=== PATIENT | male | born 1935 | race Caucasian/White ===

== ENCOUNTER 2020-12-31 09:27 | Outpatient (CLI) | payer MEDICARE, BC, SELFPAY | END 2020-12-31 09:28 | disposition home or self-care (01) | LOC: ANHCOVIDVC 09:27 | PROVIDERS: PCP Internal Medicine | DX: Z23 Encounter for immunization (principal) | CPT/HCPCS: 0001A; 91300 ==

== ENCOUNTER 2021-01-21 09:26 | Outpatient (CLI) | payer MEDICARE, BC, SELFPAY | END 2021-01-21 09:27 | disposition home or self-care (01) | LOC: ANHCOVIDVC 09:26 | PROVIDERS: PCP Internal Medicine | DX: Z23 Encounter for immunization (principal) | CPT/HCPCS: 0002A; 91300 ==

== ENCOUNTER 2021-05-05 16:23 | Observation (INO) | payer MEDICARE, BC, SELFPAY ==
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
[2021-05-05 16:38] VITALS: BP 144/74; PULSE 65; RESP 16; TEMP 36.2; O2SAT 99
--- NOTE | 2021-05-05 16:43 | ECG_ITS ---
Measurements Intervals [place] Rate: 67 P: -83 [place]: 246 QRS: -50 QRSD: 110 T: 97 QT: 445 QTc: 472 Interpretive Statements SINUS RHYTHM WITH FIRST DEGREE AV BLOCK LEFT ANTERIOR FASCICULAR BLOCK LEFT VENTRICULAR HYPERTROPHY AND ST-T CHANGE ANTEROSEPTAL INFARCT, AGE INDETERMINATE BORDERLINE ST-T WAVE ABNORMALITY- LATERAL LEADS BASELINE ARTIFACT- I, II, III, AVR ABNORMAL ECG Electronically Signed On 05-05-2021 16:59:53 CDT by Lew Clark D.O.
[2021-05-05 17:02] LABS: Basophils Absolute Auto 0.1 K/mm3 (0.0-0.1); Basophils Percent Auto 0.9 % (0.2-1.2); Eosinophils Percent Auto 0.4 % (0-4.4); Hematocrit 41.1 % (42.0-52.0); Hemoglobin 13.5 g/dL (14.0-18.0); Immature Granulocyte Absolute 0.01 K/mm3 (0.00-0.031); Immature Granulocyte Percent A 0.1 % (0-0.5); Lymphocytes Absolute Auto 1.16 K/mm3 (0.9-3.2); Lymphocytes Percent Auto 16.5 % (18.3-44.2); Mean Corpuscular HGB Conc 32.8 g/dl (32-36); Mean Corpuscular Hemoglobin 29.2 pg (26-34); Mean Platelet Volume 9.2 fl (7.4-10.4); Monocytes Absolute Auto 0.4 K/mm3 (0.1-0.6); Monocytes Percent Auto 5.6 % (2.6-8.5); Neutrophils Absolute Auto 5.4 K/mm3 (1.3-6.7); Neutrophils Percent Auto 76.5 % (45.5-73.1); Platelet Count Result 199 k/mm3 (150-375); Red Blood Count 4.62 M/mm3 (4.6-6.20); Red Cell Distribution Width 12.8 % (11.5-14.5)
[2021-05-05 17:13] LABS: Alanine Aminotransferase 19 U/L (4-50); Albumin Level 4.4 g/dL (3.5-5.1); Alkaline Phosphatase 83 U/L (38-126); Anion Gap 8 mmol/L (8-16); Aspartate Amino Transferase 35 U/L (17-59); Bilirubin,Total 0.4 mg/dL (0.2-1.3); Blood Urea Nitrogen 17 mg/dL (9-20); Calcium 9.4 mg/dL (8.4-10.2); Carbon Dioxide 22 mmol/L (22-30); Chloride 107 mmol/L (98-107); Estimated CRCL calculation 43 ml/min; Estimated Glomerular Filt Rate > 60; Glucose 136 mg/dL (75-110); Lipase 42 U/L (23-300); Potassium 3.7 mmol/L (3.4-5.0); Sodium 137 mmol/L (137-145)
--- NOTE | 2021-05-05 18:32 | PC.NURSE ---
Pt unable to give urine sample at this time.
--- NOTE | 2021-05-05 18:57 | PC.NURSE ---
Pt refuses to give urine sample until comes back into room. Will inform EDP of this.
[2021-05-05] MEDS: MECLIZINE HCL 25 MG TABLET PO (19:24)
[2021-05-05] MEDS: TETANUS,DIPHTHERIA,AC PERTUSSIS ADULT (0.5 ML) BOOSTRIX IM (19:25)
[2021-05-05 19:35] VITALS: BP 172/91; PULSE 74; O2SAT 100
--- NOTE | 2021-05-05 19:44 | ED.GENADULT ---
HPI - General Adult General Chief complaint: Dizziness <Linh Khan MD - Last Filed: 05/06/21 13:14> Stated complaint: WEAKNESS,FALL <Linh Khan MD - Last Filed: 05/06/21 13:14> Time Seen by Provider: 05/05/21 18:08 <Linh Khan MD - Last Filed: 05/06/21 13:14> Source: patient <Linh Khan MD - Last Filed: 05/06/21 13:14> History of Present Illness HPI narrative: Patient is a 86 y/o male complaining of moderate dizziness starting about 3:30 PM today. He states that he felt the room was spinning. There was no alleviating or exacerbating. He fell around 4:00 PM due to dizziness. He had some vomiting. He has some skin tear due to his fall. He states that his dizziness is better. He denies any focal weakness or numbness. He has no difficulty with speech. He is not sure when his last Tetanus shot was. <Linh Khan MD - Last Filed: 05/06/21 13:14> Related Data Home medications: Home Medications Medication Instructions Recorded Confirmed aspirin 81 mg tablet,delayed 81 mg PO DAILY 08/25/19 05/06/21 release carvedilol 6.25 mg tablet 6.25 mg PO Q12H 08/25/19 05/06/21 omeprazole 40 mg capsule,delayed 40 mg PO DAILY 08/25/19 05/06/21 release topiramate 100 mg tablet 100 mg PO BID 08/25/19 05/06/21 clopidogrel 75 mg tablet 75 mg PO DAILY 08/31/19 05/06/21 <Linh Khan MD - Last Filed: 05/06/21 13:14> Allergies/adverse reactions: Allergies Allergy/AdvReac Type Severity Reaction Status Date / Time cefuroxime Allergy Unknown Unknown Verified 03/10/21 10:35 phenytoin Allergy Unknown Swelling Verified 03/10/21 10:35 <Linh Khan MD - Last Filed: 05/06/21 13:14> Review of Systems Constitutional: Constitutional: Denies chills, Denies fever(s), Denies headache(s) and Denies weakness <Linh Khan MD - Last Filed: 05/06/21 13:14> Eyes: Eyes: Denies blurry vision <Linh Khan MD - Last Filed: 05/06/21 13:14> ENT: Denies headache(s) and Denies neck pain <Linh Khan MD - Last Filed: 05/06/21 13:14> Cardiovascular: Cardiovascular: Denies chest pain and Denies dyspnea <Linh Khan MD - Last Filed: 05/06/21 13:14> Respiratory: Respiratory: Denies cough and Denies dyspnea <Linh Khan MD - Last Filed: 05/06/21 13:14> Gastrointestinal: Gastrointestinal: Denies abdominal pain, Denies diarrhea, Denies nausea and Denies vomiting <Linh Khan MD - Last Filed: 05/06/21 13:14> Genitourinary: Genitourinary: Denies hematuria and Denies dysuria <Linh Khan MD - Last Filed: 05/06/21 13:14> Musculoskeletal: Musculoskeletal: Denies back pain and Denies neck pain <Linh Khan MD - Last Filed: 05/06/21 13:14> Integumentary/Breasts: Skin/Breast: Reports other (skin tear) <Linh Khan MD - Last Filed: 05/06/21 13:14> Neurologic: Reports dizziness, Denies headache(s) and Denies weakness <Linh Khan MD - Last Filed: 05/06/21 13:14> [facility] Past Medical History Medical History: Medical History ASHD (arteriosclerotic heart disease) BMI 25.0-25.9,adult Colon cancer screening Diarrhea Encounter for routine adult health examination without abnormal findings GERD (gastroesophageal reflux disease) Hyperlipidemia Hypokalemia 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
[2021-05-05] MEDS: METOCLOPRAMIDE HCL INJ 10 MG/2 ML VIAL IV PUSH (20:27)
[2021-05-05 21:25] VITALS: BP 144/64; PULSE 82; RESP 16; O2SAT 100
[2021-05-05 23:13] VITALS: BP 150/84; PULSE 86; RESP 18; O2SAT 99
[2021-05-05] MEDS: ONDANSETRON INJ 4 MG/2 ML VIAL IV PUSH (23:13)
[2021-05-05 23:55] VITALS: BP 158/83; PULSE 83; RESP 18; TEMP 36.2; O2SAT 98
[2021-05-06] VITALS (11 sets, daily range): BP systolic 120–158; BP diastolic 68–82; PULSE 66–96; RESP 16–18; TEMP 36.6–36.7; O2SAT 98–99; BMI 24.7
--- NOTE | 2021-05-06 00:14 | ADMGEN ---
This patient, Kirill Jean, was admitted to [facility] Surg Room 331-02. Patient/family oriented to hospital policies and general routines including ID bracelet, bed and alarms, visiting hours, pain management, procedures, bathroom and other care routines, personal items, smoking policy, room service/diet, and visiting hours. Information on how to activate the Rapid Response Team has been discussed. Patient/Family are encouraged to report perceived risks to care and to ask questions if they do not understand what they are told or what they should do.
[2021-05-06] MEDS: lisinopriL 5 MG TABLET PO (10:14)
[2021-05-06] MEDS: CLOPIDOGREL BISULFATE 75 MG TABLET PO (10:14)
[2021-05-06] MEDS: TOPIRAMATE 100 MG TABLET PO ×2 (10:14→11:53)
[2021-05-06] MEDS: PANTOPRAZOLE 40 MG TABLET PO ×2 (10:14→20:12)
[2021-05-06] MEDS: ASPIRIN 81 MG ENTERIC TABLET PO (10:14)
[2021-05-06] MEDS: carvediloL 6.25 MG TABLET PO ×2 (10:15→20:12)
[2021-05-06] MEDS: ATORVASTATIN 40 MG TABLET 80 MG PO (10:15)
[2021-05-06] MEDS: LORazepam (*CRX) 0.5 MG TABLET PO (12:18)
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
[2021-05-06 17:10] LABS: CRP < 0.5 mg/dL (<1.0); Creatine Kinase 82 U/L (55-170)
[2021-05-06] MEDS: MECLIZINE HCL 25 MG TABLET PO (17:30)
[2021-05-06] MEDS: TOPIRAMATE 100 MG TABLET 200 MG PO (17:30)
[2021-05-06 17:56] LABS: Add Urine Microscopic? YES; Appearance Urine Clear (Clear); Bacteria Urine Trace /hpf; Bilirubin Urine Negative (Negative); Blood Urine Negative (Negative); Color Urine Yellow (Yellow); Glucose Urine UA Negative (Negative); Ketones Urine Negative (Negative); Leukocyte Esterase Ur Negative LEU/UL (Negative); Mucus Urine Rare /lpf; Nitrate Urine Negative (Negative); Protein Urine 1+ mg/dL (Negative); Specific Grav Ur 1.015 (1.001-1.035); Urobilinogen Urine Negative mg/dL (<2.0); WBC Urine 0-3 /hpf
[2021-05-07] VITALS (8 sets, daily range): BP systolic 121–142; BP diastolic 66–77; PULSE 57–68; RESP 16–18; TEMP 36.6–36.7; O2SAT 97–100
[2021-05-07 06:43] LABS: Hematocrit 37.2 % (42.0-52.0); Hemoglobin 12.3 g/dL (14.0-18.0); Mean Corpuscular HGB Conc 33.1 g/dl (32-36); Mean Corpuscular Hemoglobin 29.3 pg (26-34); Mean Corpuscular Volume 88.6 fl (80-100); Mean Platelet Volume 9.7 fl (7.4-10.4); Platelet Count Result 175 k/mm3 (150-375); White Blood Count 8.5 K/mm3 (4.5-10.0)
[2021-05-07 06:59] LABS: Anion Gap 5 mmol/L (8-16); Blood Urea Nitrogen 20 mg/dL (9-20); Carbon Dioxide 23 mmol/L (22-30); Chloride 110 mmol/L (98-107); Estimated CRCL calculation 48 ml/min; Estimated Glomerular Filt Rate > 60; Glucose 106 mg/dL (75-110); Potassium 3.7 mmol/L (3.4-5.0); Sodium 138 mmol/L (137-145)
[2021-05-07] MEDS: CLOPIDOGREL BISULFATE 75 MG TABLET PO (09:27)
[2021-05-07] MEDS: TOPIRAMATE 100 MG TABLET 200 MG PO (09:27)
[2021-05-07] MEDS: MECLIZINE HCL 25 MG TABLET PO ×2 (09:27→13:10)
[2021-05-07] MEDS: lisinopriL 5 MG TABLET PO (09:27)
[2021-05-07] MEDS: ASPIRIN 81 MG ENTERIC TABLET PO (09:27)
[2021-05-07] MEDS: ATORVASTATIN 40 MG TABLET 80 MG PO (09:27)
[2021-05-07] MEDS: carvediloL 6.25 MG TABLET PO (09:27)
[2021-05-07] MEDS: PANTOPRAZOLE 40 MG TABLET PO (09:27)
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
--- NOTE | 2021-05-07 13:03 | PM.DS ---
DS: Admitting Diagnosis Admitting Diagnosis Admitting Diagnosis: dizziness DS: Discharge Diagnosis Discharge Diagnosis (1) Dizziness: Code(s): R42 - Dizziness and giddiness Status: Acute Assessment and Plan: Pt dizziness has resolved. Suspect BPPV. outpt PT for vestibular therapy was given. Day of d/c pt was walking without issue with no further symptoms. -CTA of the brain does not show any acute pathology or stenosis -unable to obtain MRI of the brain due to severe claustrophobia -neurological exam shows horizontal and vertical nystagmus on admission, no neurological deficits -improved on scheduled meclizine, he was given an Rx for that. - differential diagnosis include: benign paroxysmal vertigo, CVA, cerebellar pathology. Less likely thiamine/heavy metal abnormalities -sz seems less likely, continue Topamax. Level appropriate. -Neuro recommends outpt CT of brain in [address] I spoke with Dr[address] Elias who agrees to follow. (2) Nystagmus: Code(s): H55.00 - Unspecified nystagmus Status: Acute Assessment and Plan: resolved. as above (3) Seizure disorder: Code(s): G40.909 - Epilepsy, unspecified, not intractable, without status epilepticus Status: Acute Assessment and Plan: he has not had a breakthrough seizure since 1997 - continue Topamax (4) History of brain surgery: Code(s): Z98.890 - Other specified postprocedural states Status: Acute Assessment and Plan: he had a removal of a meningioma in 1997 and a subsequent brain bleed after his procedure - he has not had any issues since (5) Coronary artery disease: Code(s): I25.10 - Atherosclerotic heart disease of [place] coronary artery without angina pectoris Status: Acute Assessment and Plan: he had a OK in 2014 with 2 stents and continues to be on aspirin Plavix - he is usually very active - continue statin therapy DS: Summary Hospital Course Hospital Course: Pt is an 86-year-old male with a past medical history of coronary artery disease, meningioma with removal in 1997, hand seizure disorder with his last seizure in 1997 who presented emergency room for dizziness. Patient states he was in his usual state of health this weekend and had no complaints. He is an active 86-year-old and goes to the exam 5 days a week and also does workouts in his basement. Pt was out shopping for a car when he started to feel lightheaded. He was driving at the time and pulled over. He said he just sat there for a while because he thought he may have a seizure but nothing happened. He did not have any dizziness at this time so he continue driving. When he got to his destination, he noticed he was having some blurred vision as well as diaphoresis and lightheadedness. He sat down and drank a couple of glasses of water and felt better. he then drove home him when he got home he felt very dizzy. He felt like the world was spinning around him and it caused him to be very nauseated. He had no diarrhea or abdominal pain with this but did vomit due to the dizziness. since he felt dizzy, he was walking back to his bedroom and lost his balance and fell backwards on to his forearms. He did not hit his head and did not have any loss of consciousness. He sat on the floor for a few minutes with his and then was able to get up. He had no chest pain, loss of vision, or involuntary movements during this time. He did not notice any back pain, numbness or tingling to his lower extremities, or incontinence. he says that he drinks lots of water and does not feel dehydrated. He denies shortness of breath, cough, rashes, wounds, blood in his stool or dysuria. He has had absolutely no chest pain. He does have ringing in his ears but this has been chronic since his brain surgery in 1997. He was vaccinated for COVID in December with an RNA vaccine. He states he has not had a seizure since his brain surgery [email or web address]
[2021-05-10 01:13] LABS: Topiramate 8.6 mcg/mL (***)
== END 2021-05-07 15:25 | disposition home or self-care (01) ==
LOC: ANHED 22:51 → ANH3MEDSUR 23:29
PROVIDERS: Emergency Medicine; Physician Assistant; Admitting Provider Internal Medicine; Emergency Provider General Practice; PCP Internal Medicine; Visit Provider Internal Medicine
DX: R42 Dizziness and giddiness (principal); H55.00 Unspecified nystagmus; G40.909 Epilepsy, unspecified, not intractable, without status epilepticus; I25.10 Atherosclerotic heart disease of native coronary artery without angina pectoris; K21.9 Gastro-esophageal reflux disease without esophagitis; K40.91 Unilateral inguinal hernia, without obstruction or gangrene, recurrent; E78.5 Hyperlipidemia, unspecified; R73.03 Prediabetes; I25.2 Old myocardial infarction; Z95.5 Presence of coronary angioplasty implant and graft; Z79.899 Other long term (current) drug therapy; Z98.890 Other specified postprocedural states
CPT/HCPCS: 36415; 70496; 70498; 72131; 80048; 80053; 80201; 81001; 82550; 83690; 84443; 85025; 85027; 86140; 90471; 90715; 93005; 96374; 96375; 97116; 97161; 97165; 97535; 99285; A9270; G0378; J2405; J2765; Q9967

== ENCOUNTER 2022-09-17 11:21 | Inpatient (IN) | payer MEDICARE, BC, SELFPAY ==
[2022-09-17] VITALS (8 sets, daily range): BP systolic 156–178; BP diastolic 81–97; PULSE 61–98; RESP 14–19; TEMP 36.4–36.7; O2SAT 98–99; BMI 20.5
--- NOTE | ~2022-09-17 | CT_ITS ---
EXAMINATION: CTA BRAIN/CAROTID DATE: 09/17/2022 12:55 INDICATION: Aphasia TECHNIQUE: Computed tomographic angiography (CTA) of the head and neck was performed with 100 mL Omni paque-350 intravenous contrast. Multiplanar reconstructions and maximum intensity projection 3D-recon structions of the carotid arteries and of the intracranial arteries were created by the technologist on a separate workstation. Automated exposure control and iterative reconstruction technique were emp loyed.The dose-length product was 975.28 mGy-cm. COMPARISON: None. FINDINGS: Carotid arteries: Atherosclerotic calcification is along the normal caliber visualized portion of the aortic arch. Ther e is a small shallow penetrating atherosclerotic ulcer measuring approximately 1.4 x 1.3 cm in area a nd up to 4 mm in depth located approximately 1 cm distal to the takeoff of the left subclavian artery . There is small amount of atherosclerotic plaque with 0% stenosis of both the right and left carotid bulbs relative to normal distal artery lumen diameter (NASCET criteria). Visualized bilateral upper lung zones are clear. Cervical spondylosis with multilevel mild to moderate disc height loss and ante rior fusion at C5-C6. Severe multilevel bilateral cervical facet osteoarthritis. Intracranial arteries The left vertebral artery is dominant. There is mild stenosis along the intracranial right vertebral artery. Moderate stenosis along the basilar artery. Atherosclerotic plaque without hemodynamically si gnificant stenosis along the bilateral carotid siphons. There are no aneurysms identified. Both A1 a nd P1 segments are patent. The left P1 segment is diminutive with majority of flow to the left verteb ral artery is supplied by a larger caliber patent left posterior communicating artery. Cerebral arter ial arborization appears symmetric. No abnormally enhancing brain lesions identified. Again seen is a region of encephalomalacia in the left frontal lobe which could represent sequela of prior infarct o r surgery. Overlying chronic left frontal craniotomy and small chronic likely postoperative simple fl uid attenuation epidural hygroma which remain stable since 05/05/2021. IMPRESSION: 1. Atherosclerotic plaque with 0% stenosis of the right and left carotid bulbs relative to normal dis fransico artery lumen diameter (NASCET criteria). 2. Moderate stenosis along the mid basilar artery and mild stenosis along the smaller caliber intracr anial right vertebral artery. No aneurysm, dissection or abnormally enhancing brain lesion. 3. Small shallow penetrating atherosclerotic ulcer along the distal aortic arch. Consider nonemergent vascular surgery consultation. 4. Encephalomalacia in the left frontal lobe which could represent sequela prior infarct or surgery w ith stable appearance of overlying chronic postoperative changes. Reviewed, dictated and finalized at location A. STANT OFFSET PRESS OPERATOR IMPRESSION: 1. Atherosclerotic plaque with 0% stenosis of the right and left carotid bulbs relative to normal distal artery lumen diameter (NASCET criteria). 2. Moderate stenosis along the mid basilar artery and mild stenosis along the s maller caliber intracranial right vertebral artery. No aneurysm, dissection or abnormally enhancing brain lesion. 3. Small shallow penetrating atherosclerotic ulcer along the distal aortic arch . Consider nonemergent vascular surgery consultation. 4. Encephalomalacia in the left frontal lobe which could represent sequela prio r infarct or surgery with stable appearance of overlying chronic postoperative changes.
--- NOTE | ~2022-09-17 | CT_ITS ---
EXAMINATION: CT brain wo con DATE: 09/17/2022 11:50 INDICATION: Achalasia. Unresponsive episode. History of brain tumor 20 years ago. TECHNIQUE: Computed tomography (CT) of the head was performed without intravenous contrast. The mA wa s adjusted according to patient size. Iterative reconstruction technique was employed. Exam dose: 60 5.33 mGy-cm total exam DLP. COMPARISON: 05/05/2021 CTA brain/carotid FINDINGS: Left frontal bone flap secured by plates and screws, with underlying prominent area of left frontal encephalomalacia; history of previous brain tumor. The appearance is stable since 05/05/2021. Vertebral and carotid siphon and supraclinoid internal carotid artery calcifications. There is nonspe cific diminished attenuation of the cerebral white matter, likely due to chronic small vessel ischemi c changes. No intracranial mass lesion or hemorrhage, midline shift or mass effect effect is detected. No acute subdural or epidural hematoma. Moderate cerebral and cerebellar volume loss. The orbital contents are unremarkable. No fracture or bone destruction of the cranial vault is noted. There is some mastoid effusions on the left. The right mastoid air cells and included paranasal sinus es are unremarkable. IMPRESSION: Chronic left frontal encephalomalacia likely related to prior excised brain neoplasm, wi th overlying left craniectomy No acute intracranial finding or significant change since 05/05/2021 Cerebral atherosclerosis and chronic small vessel ischemic changes of the cerebral white matter Reviewed, dictated and finalized at [facility]. Reviewed, dictated and finalized at location A. ODS SPECIALIST IMPRESSION: Chronic left frontal encephalomalacia likely related to prior exci sed brain neoplasm, with overlying left craniectomy No acute intracranial finding or significant change since 05/05/2021 Cerebral atherosclerosis and chronic small vessel ischemic changes of the cereb ral white matter
--- NOTE | ~2022-09-17 | MR_ITS ---
EXAMINATION: MR brain/brain stem wo con DATE: 09/18/2022 13:41 INDICATION: Aphasia. Concern for stroke. TECHNIQUE: Magnetic resonance imaging (MRI) of the brain and brainstem was performed without intraven ous contrast. Sequences included sagittal and axial T1-weighted SE, axial diffusion-weighted FS SE, a xial T2*-weighted GRE, axial 3D SWAN, axial T2-weighted FLAIR, and axial T2-weighted FSE. Apparent di ffusion coefficient (ADC) maps were created. COMPARISON: Head CT and CT angiogram dated 09/17/2022 FINDINGS: There is a small region of restricted diffusion with associated increased T2 signal along a gyrus at the posterior left frontal lobe consistent with acute infarct. No other regions of restricted diffusi on identified. There is increased T2 white matter likely related to gliosis surrounding a moderate-si zed region of encephalomalacia in the left frontal lobe reportedly related to resection of a prior me ningioma. There are some magnetic susceptibility artifact along the overlying skull corresponding to a prior craniotomy. No intracranial hemorrhage or abnormal intracranial mass lesion. There is a small amount of additional scattered nonspecific increased T2-weighted signal intensity in the cerebral wh ite matter, predominantly involving the deep and periventricular white matter. There are no intrapare nchymal signal abnormalities seen on the other pulse sequences. The ventricles are symmetric and norm al in size. There are no abnormal extra-axial fluid collections. Flow voids are seen in the cerebral arteries on the T2-weighted sequences consistent with their expected patency. Left mastoid effusion. Changes of bilateral intraocular lens replacement. IMPRESSION: 1. Small acute infarct involving a gyrus at the posterior left frontal lobe. 2. Postoperative changes in the left frontal lobe with moderate-sized region of encephalomalacia repo rtedly for resection of a prior meningioma. 3. Left mastoid effusion. Reviewed, dictated and finalized at location A. R OPERATOR IMPRESSION: 1. Small acute infarct involving a gyrus at the posterior left frontal lobe. 2. Postoperative changes in the left frontal lobe with moderate-sized region of encephalomalacia reportedly for resection of a prior meningioma. 3. Left mastoid effusion.
--- NOTE | ~2022-09-17 | XR_ITS ---
XR chest 1V DATE: 09/17/2022 11:51 INDICATION: Achalasia TECHNIQUE: AP chest COMPARISON: 02/06/2015 portable AP chest at 0655 hours FINDINGS: Cardiomegaly and aortic calcification, ectasia and mild tortuosity. No hilar or mediastinal enlargement is evident. No pulmonary infiltrate or consolidation, pleural effusion or pulmonary vascular congestion or pneumo thorax. Osteopenia. Osteoarthritic change at both glenohumeral joints. Dextroscoliosis of the thoracic spine and levoscoliosis of the lumbar spine and thoracic and lumbar degenerative changes. IMPRESSION: Cardiomegaly, aortic atherosclerosis No active pulmonary disease Reviewed, dictated and finalized at location [facility]
--- NOTE | 2022-09-17 11:36 | ECG_ITS ---
Measurements Intervals [place] Rate: 58 P: 79 ID: [id number] QRS: -58 QRSD: 138 T: 126 QT: 456 QTc: 451 Interpretive Statements SINUS BRADYCARDIA WITH FIRST DEGREE AV BLOCK INTRAVENTRICULAR CONDUCTION DELAY LEFT VENTRICULAR HYPERTROPHY AND ST-T CHANGE ANTEROSEPTAL INFARCT, AGE INDETERMINATE BORDERLINE ST-T WAVE ABNORMALITY- ANTEROLATERAL LEADS ABNORMAL ECG COMPARED TO ECG 05/05/2021 16:55:13 SINUS BRADYCARDIA NOW PRESENT INTRAVENTRICULAR CONDUCTION DELAY NOW PRESENT Electronically Signed On 09-17-2022 14:35:20 INSTRUMENT PROCESSING TECH by Lew Clark D.O.
[2022-09-17 11:38] LABS: Glucose Point of Care 100 mg/dl (65-105)
--- NOTE | 2022-09-17 11:43 | ED.NEUROSD ---
HPI - Neuro Symptoms/Deficit General Chief Complaint: Neuro Symptoms/Deficit Stated Complaint: stroke like symptoms lkw 2100 last night Time Seen by Provider: 09/17/22 11:36 History of Present Illness HPI Narrative: This is an 87-year-old male with past medical history of intracranial malignancy status postresection, hypertension and coronary artery disease, who presents to the emergency department with aphasia. Patient's son, who is at bedside notes yesterday evening at around 9 pm, the patient had a brief episode of word finding difficulty. At approximately 1030 this morning, patient appeared to be at his baseline. When he was reevaluated approximately 30 minutes later, patient appeared to be drooling and had word finding difficulty. Patient's son notes that he was walking at the time and did not appear weak. EMS reports the patient had only aphasia without any focal weakness. Fingerstick glucose was reported in the 110s. Vital signs were otherwise reported as normal. Related Data Home Medications Medication Instructions Recorded Confirmed aspirin 81 mg tablet,delayed 81 mg PO DAILY 08/25/19 09/17/22 release (Adult Low Dose Aspirin) clopidogrel 75 mg tablet 75 mg PO DAILY 08/31/19 09/17/22 cholecalciferol (vitamin D3) 25 25 mcg PO DAILY 09/11/21 09/17/22 mcg (1,000 unit) tablet carvedilol 3.125 mg tablet 3.125 mg PO BID 01/08/22 09/17/22 atorvastatin 80 mg tablet 40 mg PO DAILY 09/17/22 09/17/22 Allergies Allergy/AdvReac Type Severity Reaction Status Date / Time cefuroxime Allergy Unknown Unknown Verified 01/08/22 11:17 phenytoin Allergy Unknown Swelling Verified 01/08/22 11:17 Review of Systems Review of Systems: Review of systems limited due to aphasia NEUROLOGIC: Aphasia [facility] Past Medical History Medical History (Updated 09/17/22 @ 16:01 by Cindy Metz PA-C) Anterior wall myocardial infarction (02/06/15) Benign meningioma of brain (1997) Coronary artery disease (2014) Gastroesophageal reflux disease Gout Hyperlipidemia Ischemic cardiomyopathy Echo in January 2015 following [place] showed and EF of 30-40% with akinetic apex as well as the distal anterior wall. Pre-diabetes Seizure disorder Vitamin D deficiency Surgical History Surgical History (Updated 09/17/22 @ 16:01 by Cindy Metz PA-C) History of bilateral carpal tunnel release History of bilateral inguinal hernia repair Laparoscopic repair with mesh of bilateral inguinal hernias on 10/30/2005. Laparoscopic incarcerated recurrent left inguinal hernia repair with ProGripmesh, da Dayron assisted on 08/08/2015. History of cardiac catheterization (02/06/15) History of coronary angioplasty with insertion of stent (02/06/15) PCI/stent to LAD/septal perforating and large diagonal per Dr. August. History of craniotomy (1997) Resection of a benign left-sided meningioma. History of tonsillectomy Family History Family History Mother Cerebrovascular accident Father Family history of osteoporosis Family history of respiratory disorder Social History Social History (Updated 09/17/22 @ 14:41 by Cindy Metz PA-C) Social History: Patient does not drink alcohol, does not smoke, and does not do drugs. 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 He would like to be a full code. He designates his , Osiris, as his surrogate decision maker if needed. Smoking status: Never smoker Alcohol intake: never Substance use: never Substance use type: does not use Lack of Transportation: No Lack of Food: Never True Current Housing: I Do Not Have Housing Concerned About Future Housing: Decline to Answer Difficulty Paying Gas/Electric Bills: Decline to Answer Difficulty Paying for Meds: Decline to Answer Currently Unemployed: Decline to Answer Education: Don't Know Difficulty w/ Childcare or Family Care: Decline to Answer Spiritual care concerns: No
[2022-09-17 11:54] LABS: Basophils Absolute Auto 0.1 K/mm3 (0.0-0.1); Eosinophils Absolute Auto 0.3 K/mm3 (0-0.3); Hematocrit 38.8 % (42.0-52.0); Hemoglobin 13.2 g/dL (14.0-18.0); Immature Granulocyte Absolute 0.01 K/mm3 (0.00-0.031); Immature Granulocyte Percent A 0.2 % (0-0.5); Lymphocytes Absolute Auto 2.26 K/mm3 (0.9-3.2); Lymphocytes Percent Auto 36.1 % (18.3-44.2); Mean Corpuscular Hemoglobin 30.1 pg (26-34); Mean Corpuscular Volume 88.6 fl (80-100); Mean Platelet Volume 9.2 fl (7.4-10.4); Monocytes Absolute Auto 0.5 K/mm3 (0.1-0.6); Monocytes Percent Auto 8.3 % (2.6-8.5); Neutrophils Absolute Auto 3.1 K/mm3 (1.3-6.7); Neutrophils Percent Auto 49.4 % (45.5-73.1); Platelet Count Result 208 k/mm3 (150-375); Red Blood Count 4.38 M/mm3 (4.6-6.20); Red Cell Distribution Width 12.6 % (11.5-14.5); White Blood Count 6.3 K/mm3 (4.5-10.0)
[2022-09-17 12:04] LABS: Ethanol < 10 mg/dL (<10)
[2022-09-17 12:05] LABS: INR 1.2; Prothrombin Time 14.3 Seconds (11.1-14.7)
[2022-09-17 12:06] LABS: Partial Thromboplastin Time 29.8 SECONDS (22.3-36.8)
[2022-09-17 12:07] LABS: Alanine Aminotransferase 24 U/L (6-50); Albumin Level 4.2 g/dL (3.5-5.1); Alkaline Phosphatase 72 U/L (38-126); Anion Gap 11 mmol/L (8-16); Aspartate Amino Transferase 32 U/L (17-59); Bilirubin,Total 0.5 mg/dL (0.2-1.3); Blood Urea Nitrogen 16 mg/dL (9-20); Calcium 9.1 mg/dL (8.4-10.2); Carbon Dioxide 22 mmol/L (22-30); Chloride 105 mmol/L (98-107); Estimated CRCL calculation 41 ml/min; Estimated Glomerular Filt Rate > 60; Glucose 93 mg/dL (65-110); Potassium 4.3 mmol/L (3.4-5.0); Sodium 138 mmol/L (137-145)
[2022-09-17 12:14] LABS: Appearance Urine Clear (Clear); Bilirubin Urine Negative (Negative); Blood Urine 1+ (Negative); Color Urine Yellow (Yellow); Glucose Urine UA Negative (Negative); Ketones Urine Negative (Negative); Leukocyte Esterase Ur Negative LEU/UL (Negative); Nitrate Urine Negative (Negative); Protein Urine Negative (Negative); Specific Grav Ur 1.015 (1.001-1.035); Urobilinogen Urine 0.2 mg/dL (<2.0); pH Urine 7.5 (5.0-9.0)
[2022-09-17 12:18] LABS: Mucus Urine Rare /lpf; WBC Urine 0-3 /hpf
[2022-09-17 12:19] LABS: Add Urine Microscopic? YES
[2022-09-17 12:19] LABS: Troponin I 0.012 ng/mL (0.000-0.034)
[2022-09-17 12:30] LABS: Amphetamine Screen Urine Negative (Negative); Barbiturate Screen Urine Negative (Negative); Benzodiazepines Screen Urine Negative (Negative); Cannabinoid Screen Urine Negative (Negative); Cocaine Screen Urine Negative (Negative); Methadone Screen Urine Negative (Negative); Opiate Screen Urine Negative (Negative); Phencyclidine Screen Urine Negative (Negative)
[2022-09-17 14:50] LABS: Influenza A QL RT-PCR Negative (Negative); Influenza B QL RT-PCR Negative (Negative); SARS-CoV-2 RNA PCR Negative
--- NOTE | 2022-09-17 16:21 | ADMGEN ---
This patient, Kirill Jean, was admitted to Medical Room 347-. Patient/family oriented to hospital policies and general routines including ID bracelet, bed and alarms, visiting hours, pain management, procedures, bathroom and other care routines, personal items, smoking policy, room service/diet, and visiting hours. Information on how to activate the Rapid Response Team has been discussed. Patient/Family are encouraged to report perceived risks to care and to ask questions if they do not understand what they are told or what they should do.
--- NOTE | 2022-09-17 16:30 | PM.IMHP ---
H&P: HPI History of Present Illness Date/Time: 09/17/22 16:30 Chief Complaint: Difficulty speaking. Narrative: This is an 87-year-old male with history of benign meningioma status post resection, seizure, hypertension and coronary artery disease who presented to the emergency department via EMS from home for evaluation of difficulty speaking. Obtaining a history from the patient is a bit difficult as he has pretty significant expressive aphasia however he is able to write okay and is fully able to understand what I am asking him. Some of the following is supplemented via a review of his electronic medical records as well as discussions with his sons, with the patient's permission. At around 21:00 last evening he reportedly had a brief episode of word-finding difficulties which passed quickly. When he got up this morning he was at baseline and his son came over to pick him up for Thanksgiving lunch. They chatted for bit while he got ready and the son left him alone to finish getting dressed. Perhaps 10 to 15 minutes later, son went back in to the room to tell the patient was time to go and ?he looks like a deer in headlights? and he was unable to respond to his son's questions. He ambulated without issue to the bathroom and son followed him in there at which time the patient was stuttering and only able to say numbers. Son also reports that he seems to be grunting and was drooling for brief period of time. EMS was summoned and fingerstick glucose at that time was 110. They did not notice any gross focal deficits and the patient seemed to be only suffering from aphasia. Brain CT showed chronic left frontal encephalomalacia likely related to excision of prior brain neoplasm and cerebral atherosclerosis and chronic small-vessel ischemic changes of cerebral white matter without any significant change when compared to a prior scan in April 2021. Dr. Mercado (neurology) was consulted by the ED physician and she did not give recommendations for tPA. Instead a CTA of the head and neck was recommended, no large vessel occlusions were noted, and he is being admitted in this setting for close monitoring, further workup, and neurology consult. At the time my evaluation he is alert and oriented. He was able to easily get himself from the gurney to his bed and does not appear to have any physical limitations. He seems to comprehend what I am saying to him and can write without issue. He was noted to clear his throat several times during the interview but son at bedside states that this is been an ongoing issue however it may be a little bit worse today. The patient was able to drink water need ice chips in the room without any obvious issues. Aside from the speech he has no other deficits and he specifically denies vertigo, auditory and visual changes, focal weakness, paresthesias, facial droop. He has no known history of cardiac dysrhythmia and denies sensations of racing heart and palpitations. He is on dual anti-platelet therapy for history of coronary artery disease and is on a statin daily; he took all of his medications this morning. Review of Systems Review of Systems: Twelve systems were reviewed and are negative except for as per HPI. [facility] Past Medical History Medical History (Updated 09/17/22 @ 20:55 by Cindy Metz PA-C) Anterior wall myocardial infarction (02/06/15) Benign meningioma of brain (1997) Coronary artery disease (2014) Essential hypertension Gastroesophageal reflux disease Gout Hyperlipidemia Ischemic cardiomyopathy Echo in January 2015 following [place] showed and EF of 30-40% with akinetic apex as well as the distal anterior wall. Pre-diabetes Seizure disorder Vitamin D deficiency Surgical History Surgical History History of bilateral carpal tunnel release History of bilateral inguinal hernia repair Laparoscopic repair with mesh of bilateral inguinal hernias on 10/30/2005. Laparoscopic i
[2022-09-18] VITALS (11 sets, daily range): BP systolic 132–145; BP diastolic 57–75; PULSE 60–80; RESP 16–20; TEMP 36.2–36.8; O2SAT 98–100
--- NOTE | 2022-09-18 04:42 | PC.NURSE ---
09/17/221999: PT EXPERIENCED EPISODE OF EPISTAXIS FROM RT NARE; ABLE TO CONTROL/STOP BLEED W/ NASAL BRIDGE PRESSURE AND NASAL PACKING. DR. VARGAS MADE AWARE. NNO. BP WNL.
[2022-09-18 05:23] LABS: Basophils Absolute Auto 0.1 K/mm3 (0.0-0.1); Basophils Percent Auto 0.9 % (0.2-1.2); Eosinophils Absolute Auto 0.1 K/mm3 (0-0.3); Eosinophils Percent Auto 1.7 % (0-4.4); Hematocrit 37.1 % (42.0-52.0); Hemoglobin 12.5 g/dL (14.0-18.0); Immature Granulocyte Absolute 0.01 K/mm3 (0.00-0.031); Immature Granulocyte Percent A 0.2 % (0-0.5); Lymphocytes Absolute Auto 1.83 K/mm3 (0.9-3.2); Lymphocytes Percent Auto 28.7 % (18.3-44.2); Mean Corpuscular HGB Conc 33.7 g/dl (32-36); Mean Corpuscular Hemoglobin 29.5 pg (26-34); Mean Corpuscular Volume 87.5 fl (80-100); Monocytes Absolute Auto 0.5 K/mm3 (0.1-0.6); Monocytes Percent Auto 7.8 % (2.6-8.5); Neutrophils Absolute Auto 3.9 K/mm3 (1.3-6.7); Neutrophils Percent Auto 60.7 % (45.5-73.1); Platelet Count Result 174 k/mm3 (150-375); Red Blood Count 4.24 M/mm3 (4.6-6.20); Red Cell Distribution Width 12.7 % (11.5-14.5); White Blood Count 6.4 K/mm3 (4.5-10.0)
[2022-09-18 05:34] LABS: Anion Gap 8 mmol/L (8-16); Blood Urea Nitrogen 15 mg/dL (9-20); Calcium 8.8 mg/dL (8.4-10.2); Carbon Dioxide 23 mmol/L (22-30); Chloride 107 mmol/L (98-107); Estimated CRCL calculation 41 ml/min; Estimated Glomerular Filt Rate > 60; Glucose 100 mg/dL (65-110); Potassium 4.1 mmol/L (3.4-5.0); Sodium 138 mmol/L (137-145)
[2022-09-18] MEDS: lisinopriL 5 MG TABLET PO (08:31)
[2022-09-18] MEDS: carvediloL 3.125 MG TABLET PO (08:32)
[2022-09-18] MEDS: CHOLECALCIFEROL 1,000 UNITS TABLET 1000 UNITS PO (08:32)
[2022-09-18] MEDS: MULTIVITAMINS THERAPEUTIC TAB (*BKC) 1 TABLET PO (08:32)
[2022-09-18] MEDS: EZETIMIBE 10 MG TABLET PO (08:32)
[2022-09-18] MEDS: ATORVASTATIN 40 MG TABLET PO (08:32)
[2022-09-18] MEDS: ASPIRIN 81 MG ENTERIC TABLET PO (08:32)
[2022-09-18] MEDS: CLOPIDOGREL BISULFATE 75 MG TABLET PO (08:32)
--- NOTE | 2022-09-18 08:46 | WPDNEURCNPN ---
Assessment and Plan Assessment and plan (1) Aphasia: Code(s): R47.01 - Aphasia Status: Acute (2) Cerebrovascular accident: Code(s): I63.9 - Cerebral infarction, unspecified Status: Acute (3) Coronary artery disease: Onset Date: 2014 Code(s): I25.10 - Atherosclerotic heart disease of [place] coronary artery without angina pectoris Status: Acute (4) Essential hypertension: Code(s): I10 - Essential (primary) hypertension Status: Acute Plan Patient is an 87 year old male with a history of CAD, HTN, HLD, pre-diabetes who presents with aphasia, concerning for stroke. Etiology is unclear, likely large vessel disease given CTA findings of atherosclerosis, but could also be cardioembolic given underlying coronary artery disease. - Recommend stroke work-up with MRI brain and surface echo with bubble study - Check LDL and HgbA1c - Continue ASA, Plavix, and Atorvastatin Consult date: 09/18/22 Time Seen: 08:46 Reason for consult: aphasia HPI: Kirill Jean is a 87 year old male with a history of HTN, CAD, pre-diabetes, meningioma s/p resection presenting with aphasia. Patient's last known well was 2100 on 09/16 which around the time he had a short transient episode of word finding difficulty that self-resolved. Patient woke up the next day at baseline, but by the time son came to pick him up, patient was displaying word finding difficulties again -- he was unable to answer son's questions and stuttering. EMS was called, fingerstick glucose was 110s. He was taken to [place] ED where he only had aphasia without any other focal deficits. EKG showed sinus bradycardia with 1st degree AV block. His BP on arrival was in 160s-170s systolic. CT showed L frontal encephalomalacia from prior tumor resection. CTA showed atherosclerotic plaque in bilateral carotid bulbs without stenosis and moderate stenosis along the mid basilar artery and mild stenosis along the intracranial right vertebral artery. Also noted was an atherosclerotic ulcer on the distal aortic arch. Patient did not receive tPA due to his LKW being outside the window. Patient is already on ASA 81mg, Plavix 75mg ( DAPT for CAD), Atorvastatin 80mg, as well as Ezetimibe. He reported good compliance with these medications. Patient is still aphasic this morning. Review of Systems Review of Systems: Patient aphasic, unable to answer questions ROS unobtainable: Yes unobtainable due to medical condition [facility] Past Medical History Medical History Anterior wall myocardial infarction (02/06/15) Benign meningioma of brain (1997) Coronary artery disease (2014) Essential hypertension Gastroesophageal reflux disease Gout Hyperlipidemia Ischemic cardiomyopathy Echo in January 2015 following [place] showed and EF of 30-40% with akinetic apex as well as the distal anterior wall. Pre-diabetes Seizure disorder Vitamin D deficiency Surgical History Surgical History History of bilateral carpal tunnel release History of bilateral inguinal hernia repair Laparoscopic repair with mesh of bilateral inguinal hernias on 10/30/2005. Laparoscopic incarcerated recurrent left inguinal hernia repair with ProGripmesh, da Dayron assisted on 08/08/2015. History of cardiac catheterization (02/06/15) History of coronary angioplasty with insertion of stent (02/06/15) PCI/stent to LAD/septal perforating and large diagonal per Dr. August. History of craniotomy (1997) Resection of a benign left-sided meningioma. History of tonsillectomy Family History Family History Mother Cerebrovascular accident Father Family history of osteoporosis Family history of respiratory disorder Social History Social History Social History: The patient lives in his own home, his
--- NOTE | 2022-09-18 09:17 | PCSTNOTE ---
Please refer to the Bedside Swallow Evaluation in the EMR. Please note, silent aspiration cannot be ruled out at bedside.
--- NOTE | 2022-09-18 09:59 | PM.IMPN ---
Progress Note: A&P Assessment and Plan (1) Aphasia: Code(s): R47.01 - Aphasia Status: Acute Assessment and Plan: brain CT did not show any acute findings. Appreciate Neurology input. Continue statin aspirin Plavix. MRI brain ordered per Neurology. Appreciate speech therapy evaluation. Patient on diet per speech therapy. PT and OT consult (2) Cerebrovascular accident: Code(s): I63.9 - Cerebral infarction, unspecified Status: Acute Assessment and Plan: neuro consult. MRI brain. PT and OT consult (3) Essential hypertension: Code(s): I10 - Essential (primary) hypertension Status: Acute Assessment and Plan: allow for permissive hypertension. Hold home antihypertensives (4) Coronary artery disease: Onset Date: 2014 Code(s): I25.10 - Atherosclerotic heart disease of [place] coronary artery without angina pectoris Status: Acute Assessment and Plan: continue aspirin Plavix statin Subjective Date/time seen: 09/18/22 09:59 patient has some expressive aphasia. No other complaints at this time. No extremity weakness Review of Systems Review of Systems: Twelve systems were reviewed and are negative except for as per HPI. Exam Narrative: General: Well-developed elderly male sitting up in bed in no acute distress. Weight: 63 kilograms. BMI: 20.5. HEENT: Changes from prior left-sided craniotomy noted. PERRL, EOMI. No lid lag. Sclera anicteric. Oral mucosa moist. Oropharynx clear. Neck: Supple. No carotid bruits. Respiratory: Lungs are clear to auscultation bilaterally. Cardiovascular: Regular rate and rhythm with S1-S2. Gastrointestinal: Abdomen is soft, nontender, and nondistended with positive bowel sounds. Skin: Warm and dry. No rash or lesions on limited exam. Extremities: No cyanosis or clubbing. Trace lucía ankle edema bilaterally. Radial and pedal pulses intact. Neurological: Alert and oriented x4. Cranial nerves 2-12 are grossly intact. He has marked expressive aphasia though occasionally he is clearly able to articulate the word that he is wanting to say. No facial asymmetry. Tongue is midline with equal rise of the palate. No pronator drift. Normal [id number] and rapid alternating movements. Strength 5/5 in upper and lower extremities. Sensation intact throughout. Psychiatric: Pleasant and cooperative with appropriate mood and affect. Objective Data Vital Signs Vital Signs: Vital Signs - 24 hr 09/17/22 11:24 09/17/22 12:40 09/17/22 14:52 Temperature 98.1 F Pulse Rate 61 63 68 Respiratory Rate 19 15 16 Blood Pressure 166/92 H 168/90 H 176/97 H Pulse Oximetry 98 99 99 Oxygen Delivery Room Air 09/17/22 16:06 09/17/22 16:48 09/17/22 16:00 Temperature 97.5 F L Pulse Rate 63 63 80 Respiratory Rate 14 18 Blood Pressure 168/90 H 178/83 H Pulse Oximetry 99 99 Oxygen Delivery 09/17/22 16:00 09/17/22 22:00 09/17/22 20:00 Temperature 97.9 F Pulse Rate 98 70 Respiratory Rate 16 Blood Pressure 156/81 H Pulse Oximetry 98 Oxygen Delivery Room Air 09/18/22 00:00 09/18/22 04:00 09/18/22 04:27 Temperature Pulse Rate 80 78 80 Respiratory Rate Blood Pressure Pulse Oximetry Oxygen Delivery 09/18/22 06:00 09/18/22 08:32 Temperature 97.2 F L Pulse Rate 78 78 Respiratory Rate 16 Blood Pressure 145/70 H Pulse Oximetry 98 Oxygen Delivery Intake/Output Intake/Output: Intake & Output 09/15/22 09/16/22 09/17/22 09/18/22 23:59 23:59 23:59 23:59 Output Total 200 / 200 Balance -200 / -200 Meds/Results Medications: Active Medications Generic Name Dose Route Start Last Admin Trade Name Arnoldoq PRN Reason Stop Dose Admin Aspirin 81 mg 09/18/22 09:00 09/18/22 08:32 Aspirin 81 Mg Enteric Tablet PO 81 mg DAILY MAXWELL Administration Atorvastatin Calcium 40 mg 09/18/22 09:00 09/18/22 08:32 Atorvastatin 40 Mg Tablet PO 40 mg D
[2022-09-18] MEDS: TOPIRAMATE 100 MG TABLET PO (12:21)
[2022-09-18] MEDS: ALPRAZolam (*CRX) 0.5 MG TABLET PO (12:27)
[2022-09-18] MEDS: TOPIRAMATE 100 MG TABLET 200 MG PO (17:45)
--- NOTE | 2022-09-18 21:04 | ECHO_ITS ---
Patient Info Name: Kirill Jean Age: 87 years : 1935 Gender: Male Ht: 69 in Wt: 138 lbs BSA: 1.74 m2 HR: 80 bpm BP: 156 / 81 mmHg Heart Rhythm: Sinus Rhythm Technical Quality: Fair Exam Date: 09/18/2022 2:03 PM Exam Location: [facility] Patient Status: Outpatient Admit Date: 09/17/2022 Staff Ordering Physician: Cindy Metz PA-C Shop Worker: Naa Sofia RDCS Attending Provider: Jann Nails MD Referring Physician: Lashay ARAUZ; Exam Type: CA echo doppler w bubble study Study Info Indications - CVA, HTN, CAD Complete two-dimensional, color flow and Doppler transthoracic echocardiogram is performed. Contrast/Agitated Saline Contrast/Ag. Saline: Agitated Saline Amount: 20.00 ml Administered By: Rosio Ventura Existing IV Access: Yes IV Access Condition: patent with no signs of infiltration Summary 1. Complete two-dimensional, color flow and Doppler transthoracic echocardiogram is performed. 2. Left ventricular systolic function appears to be mildly reduced, estimated at 40-45%. The apical cap appears to be akinetic, however, difficult to comment on other regional wall motion abnormalities due to poor visualization of the endocardial borders. 3. Right ventricular systolic function is normal. 4. Intact interatrial septum visualized by color flow and agitated saline imaging. 5. The aortic root size at the sinus of Valsalva is dilated. 6. No significant valvular disease. Left Ventricle Left ventricular chamber dimension is normal. Left ventricular systolic function appears to be mildly reduced, estimated at 40-45%. The apical cap appears to be akinetic, however, difficult to comment on other regional wall motion abnormalities due to poor visualization of the endocardial borders. There is mildly increased left ventricular wall thickness. Right Ventricle Right ventricular chamber dimension is normal. Right ventricular systolic function is normal. Left Atria Left atrial chamber dimension is normal. Right Atria Right atrial chamber dimension is normal. Atrial Septum Intact interatrial septum visualized by color flow and agitated saline imaging. Aortic Valve The aortic valve is probable trileaflet. There is no aortic valve stenosis. There is no aortic valve regurgitation. There is moderate aortic valve calcification. Pulmonic Valve The pulmonic valve is not well visualized. Mitral Valve There is no mitral valve stenosis. There is no mitral valve regurgitation. Tricuspid Valve There is trace tricuspid valve regurgitation. Pericardium/Pleural There is no pericardial effusion. Aorta The aortic root size at the sinus of Valsalva is dilated. Left Ventricular Outflow Tract Name Value Normal LVOT 2D LVOT Diameter 2.3 cm LVOT Doppler LVOT Peak Gradient 3 mmHg LVOT Mean Gradient 2 mmHg LVOT VTI 17 cm LVOT VTI/AV VTI Ratio 0.9 LVOT Stroke Volume
[2022-09-19] VITALS (8 sets, daily range): BP systolic 142–155; BP diastolic 69–72; PULSE 52–93; RESP 16–18; TEMP 36.3–36.5; O2SAT 99–100
--- NOTE | 2022-09-19 08:10 | PM.IMPN ---
Progress Note: A&P Assessment and Plan (1) Aphasia: Code(s): R47.01 - Aphasia Status: Acute Assessment and Plan: brain CT did not show any acute findings. Appreciate Neurology input. Continue statin aspirin Plavix. MRI brain ordered per Neurology. Appreciate speech therapy evaluation. Patient on diet per speech therapy. PT and OT consult (2) Cerebrovascular accident: Code(s): I63.9 - Cerebral infarction, unspecified Status: Acute Assessment and Plan: neuro consult. MRI brain. PT and OT consult (3) Essential hypertension: Code(s): I10 - Essential (primary) hypertension Status: Acute Assessment and Plan: allow for permissive hypertension. Hold home antihypertensives (4) Coronary artery disease: Onset Date: 2014 Code(s): I25.10 - Atherosclerotic heart disease of [place] coronary artery without angina pectoris Status: Acute Assessment and Plan: continue aspirin Plavix statin Plan DVT prophylaxis with SCDs GI prophylaxis not indicated Code status full code Subjective Date/time seen: 09/19/22 08:10 Interval history: No overnight events noted. No chest pain or shortness of breath. No nausea, vomiting or diarrhea. No fevers or chills. Review of Systems Review of Systems: 12 point review of systems was assessed and was negative except as noted in the HPI Exam Narrative: General: No acute distress, alert and oriented per baseline HEENT: Atraumatic, normocephalic, mucous membranes moist CV: Regular rate and rhythm, S1, S2 Lungs: Clear to auscultation bilaterally, no rales or crackles noted, no wheezes, good air entry Abdomen: Soft, nontender, nondistended Extremities: Normal to inspection Skin: No rashes noted, no lesions or wounds seen Psych: Euthymic, normal affect Objective Data Vital Signs Vital Signs: Vital Signs - 24 hr 09/18/22 08:32 09/18/22 09:44 09/18/22 08:30 Temperature Pulse Rate 78 80 Respiratory Rate Blood Pressure Pulse Oximetry Oxygen Delivery Room Air 09/18/22 08:30 09/18/22 12:00 09/18/22 14:00 Temperature 98.3 F Pulse Rate 74 73 Respiratory Rate 18 Blood Pressure 135/75 Pulse Oximetry 100 Oxygen Delivery Room Air 09/18/22 16:00 09/18/22 19:42 09/18/22 20:00 Temperature 98.1 F Pulse Rate 76 65 60 Respiratory Rate 20 Blood Pressure 132/57 L Pulse Oximetry 98 Oxygen Delivery 09/19/22 00:00 09/19/22 04:00 09/19/22 05:03 Temperature 97.4 F L Pulse Rate 53 L 52 L 59 L Respiratory Rate 18 Blood Pressure 142/72 H Pulse Oximetry 99 Oxygen Delivery Intake/Output Intake/Output: Intake & Output 09/16/22 09/17/22 09/18/22 09/19/22 23:59 23:59 23:59 23:59 Intake Total 1320 Output Total 200 Balance -200 1320 Meds/Results Medications: Active Medications Generic Name Dose Route Start Last Admin Trade Name Freq PRN Reason Stop Dose Admin Aspirin 81 mg 09/18/22 09:00 09/18/22 08:32 Aspirin 81 Mg Enteric Tablet PO 81 mg DAILY MAXWELL Administration Atorvastatin Calcium 40 mg 09/18/22 09:00 09/18/22 08:32 Atorvastatin 40 Mg Tablet PO 40 mg DAILY MAXWELL Administration Clopidogrel Bisulfate 75 mg 09/18/22 09:00 09/18/22 08:32 Clopidogrel Bisulfate 75 Mg Tablet PO 75 mg DAILY MAXWELL Administration Ezetimibe 10 mg 09/18/22 09:00 09/18/22 08:32 Ezetimibe 10 Mg Tablet PO 10 mg DAILY MAXWELL Administration Multivitamins Therapeutic 1 tablet 09/18/22 09:00 09/18/22 08:32 Multivitamins Therapeutic Tab (*Bkc) PO 1 tablet DAILY MAXWELL Administration Perflutren Lipid Microsphere 0 ml 09/17/22 21:04 Perflutren Lipid Microspheres 1.5 Ml Vial Diluted To 10 Ml Total Volume IV PUSH 09/19/22 21:04 ONCE PRN adequate visualization Protocol Topiramate 200 mg 09/18/22 17:00 09/18/22 17:45 Topiramate 100 Mg Tablet PO 200 mg BID MAXWELL Administrat
[2022-09-19] MEDS: TOPIRAMATE 100 MG TABLET 200 MG PO ×2 (09:19→16:44)
[2022-09-19] MEDS: MULTIVITAMINS THERAPEUTIC TAB (*BKC) 1 TABLET PO (09:19)
[2022-09-19] MEDS: EZETIMIBE 10 MG TABLET PO (09:19)
[2022-09-19] MEDS: CLOPIDOGREL BISULFATE 75 MG TABLET PO (09:19)
[2022-09-19] MEDS: CHOLECALCIFEROL 1,000 UNITS TABLET 1000 UNITS PO (09:19)
[2022-09-19] MEDS: ATORVASTATIN 40 MG TABLET PO (09:19)
[2022-09-19] MEDS: ASPIRIN 81 MG ENTERIC TABLET PO (09:19)
--- NOTE | 2022-09-19 11:33 | WPDNEUROPN ---
Progress Note: A&P Assessment and Plan (1) Cerebrovascular accident: Code(s): I63.9 - Cerebral infarction, unspecified Status: Acute (2) Aphasia: Code(s): R47.01 - Aphasia Status: Acute (3) Essential hypertension: Code(s): I10 - Essential (primary) hypertension Status: Acute (4) Mixed hyperlipidemia: Code(s): E78.2 - Mixed hyperlipidemia Status: Acute (5) Coronary artery disease: Qualifiers: Coronary Disease-Associated Artery/Lesion type: unspecified vessel or lesion type [place] vs. transplanted heart: [place] heart Associated angina: unspecified whether angina present Qualified Code(s): I25.10 - Atherosclerotic heart disease of [place] coronary artery without angina pectoris Code(s): I25.10 - Atherosclerotic heart disease of [place] coronary artery without angina pectoris Status: Acute Plan Patient is an 87 year old male with a history of CAD, HTN, HLD, pre-diabetes who presents with aphasia, concerning for stroke. MRI brain confirmed L posterior frontal infarct. Etiology is likely large vessel disease given CTA findings of atherosclerosis. 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 Patient's last known well was 2100 on 09/16 which around the time he had a short transient episode of word finding difficulty that self-resolved. Patient woke up the next day at baseline, but by the time son came to pick him up, patient was displaying word finding difficulties again -- he was unable to answer son's questions and stuttering. EMS was called, fingerstick glucose was 110s. He was taken to [place] ED where he only had aphasia without any other focal deficits. EKG showed sinus bradycardia with 1st degree AV block. His BP on arrival was in 160s-170s systolic. CT showed L frontal encephalomalacia from prior tumor resection. CTA showed atherosclerotic plaque in bilateral carotid bulbs without stenosis and moderate stenosis along the mid basilar artery and mild stenosis along the intracranial right vertebral artery. Also noted was an atherosclerotic ulcer on the distal aortic arch. Patient did not receive tPA due to his LKW being outside the window. Patient is already on ASA 81mg, Plavix 75mg ( DAPT for CAD), Atorvastatin 40mg, as well as Ezetimibe. There were reports of good compliance with these medications. Patient is still aphasic this morning, but son reports notable difference since admission. MRI brain showed acute infarct in the left posterior frontal lobe. Echo unrevealing. Review of Systems Review of Systems: Patient unable to answer questions due to aphasia ROS unobtainable: Yes unobtainable due to medical condition Exam Const: General: comfortable and no acute distress HENMT: Mouth: Yes moist mucous membranes Eyes: Pupils: Equal, round and reactive pupils present EOM: EOMs intact bilaterally Resp: Effort & Inspection: normal respiratory effort Auscultation: clear to auscultation bilaterally Cardio: Rate: regular rate Rhythm: regular rhythm GI: GI Palp: Yes Soft to palpation Auscultation: normal bowel sounds Skin: General skin exam: normal color Neuro: Other: Alert and oriented to self, location, and year. Unable to say August, but did attempt, unable to repeat, can name some objects, comprehension appears intact (expressive aphasia), face symmetric, EOMI, PERRL, strength in upper and lower extremities is symmetric and intact, sensation is symmetric and intact, FNF normal bilaterally Extrem: General: normal to inspection Psych: Mental Status: mental status grossly normal Affect: normal affect
--- NOTE | 2022-09-19 15:05 | PM.DS ---
DS: Admitting Diagnosis Discharge Date September 19, 2022 Admitting Diagnosis difficulty speaking DS: Discharge Diagnosis Discharge Diagnosis (1) Aphasia: Code(s): R47.01 - Aphasia Status: Acute Assessment and Plan: brain CT did not show any acute findings. Appreciate Neurology input. Continue statin aspirin Plavix. MRI brain ordered per Neurology. Appreciate speech therapy evaluation. Patient on diet per speech therapy. PT and OT consult (2) Cerebrovascular accident: Code(s): I63.9 - Cerebral infarction, unspecified Status: Acute Assessment and Plan: neuro consult. MRI brain. PT and OT consult (3) Essential hypertension: Code(s): I10 - Essential (primary) hypertension Status: Acute Assessment and Plan: allow for permissive hypertension. Hold home antihypertensives (4) Coronary artery disease: Onset Date: 2014 Code(s): I25.10 - Atherosclerotic heart disease of [place] coronary artery without angina pectoris Status: Acute Assessment and Plan: continue aspirin Plavix statin Plan DVT prophylaxis with SCDs GI prophylaxis not indicated Code status full code DS: Summary Hospital Course Hospital Course: 87-year-old male with history of benign meningioma status post resection, seizure, hypertension and coronary artery disease who presented to the emergency department via EMS from home for evaluation of difficulty speaking. Obtaining a history from the patient is a bit difficult as he has pretty significant expressive aphasia however he is able to write okay and is fully able to understand what I am asking him. Some of the following is supplemented via a review of his electronic medical records as well as discussions with his sons, with the patient's permission. At around 21:00 last evening he reportedly had a brief episode of word-finding difficulties which passed quickly. When he got up this morning he was at baseline and his son came over to pick him up for Thanksgiving lunch. They chatted for bit while he got ready and the son left him alone to finish getting dressed. Perhaps 10 to 15 minutes later, son went back in to the room to tell the patient was time to go and ?he looks like a deer in headlights? and he was unable to respond to his son's questions. He ambulated without issue to the bathroom and son followed him in there at which time the patient was stuttering and only able to say numbers. Son also reports that he seems to be grunting and was drooling for brief period of time. EMS was summoned and fingerstick glucose at that time was 110. They did not notice any gross focal deficits and the patient seemed to be only suffering from aphasia. Brain CT showed chronic left frontal encephalomalacia likely related to excision of prior brain neoplasm and cerebral atherosclerosis and chronic small-vessel ischemic changes of cerebral white matter without any significant change when compared to a prior scan in April 2021. Dr. Mercado (neurology) was consulted by the ED physician and she did not give recommendations for tPA. Instead a CTA of the head and neck was recommended, no large vessel occlusions were noted, and he is being admitted in this setting for close monitoring, further workup, and neurology consult. At the time my evaluation he is alert and oriented. He was able to easily get himself from the gurney to his bed and does not appear to have any physical limitations. He seems to comprehend what I am saying to him and can write without issue. He was noted to clear his throat several times during the interview but son at bedside states that this is been an ongoing issue however it may be a little bit worse today. The patient was able to drink water need ice chips in the room without any obvious issues. Aside from the speech he has no other deficits and he specifically denies vertigo, auditory and visual changes, focal weakness, paresthesias, facial droop. He has no
== END 2022-09-19 17:30 | disposition home or self-care (01) | DRG 66 ==
LOC: ANHED 11:55 → ANH3MED 15:19
PROVIDERS: Admitting Provider Internal Medicine; Emergency Provider Preventive Medicine Aerospace Medicine; PCP Internal Medicine; Visit Provider Student in an Organized Health Care Education/Training Program
DX: I63.9 Cerebral infarction, unspecified (principal); R47.01 Aphasia; G93.89 Other specified disorders of brain; R29.704 NIHSS score 4; I10 Essential (primary) hypertension; I25.10 Atherosclerotic heart disease of native coronary artery without angina pectoris; I25.5 Ischemic cardiomyopathy; E78.2 Mixed hyperlipidemia; R73.03 Prediabetes; E55.9 Vitamin D deficiency, unspecified; K21.9 Gastro-esophageal reflux disease without esophagitis; M10.9 Gout, unspecified; G40.909 Epilepsy, unspecified, not intractable, without status epilepticus; Z20.822 Contact with and (suspected) exposure to COVID-19; I25.2 Old myocardial infarction; Z79.899 Other long term (current) drug therapy; Z86.011 Personal history of benign neoplasm of the brain; Z95.5 Presence of coronary angioplasty implant and graft
CPT/HCPCS: 36415; 51701; 70450; 70496; 70498; 70551; 71045; 80048; 80053; 80307; 81001; 82948; 84484; 85025; 85610; 85730; 87636; 92507; 92523; 92610; 93005; 93306; 96375; 97161; 97165; 99285; A9270; G0378; Q9967

== ENCOUNTER 2022-11-11 14:00 | Outpatient (RCR) | payer MEDICARE, BC, SELFPAY ==
--- NOTE | 2022-10-07 14:57 | STOPEVAL1 ---
Assessment and note entered by Lulú Ochoa, [facility] Evaluation Information Assessment Status Evaluation Diagnosis CVA Subjective Information Hospitalized at [facility] for two days following this CVA. He stated, I have a hard time saying my words and expressing myself. Patient states, I know exactly what I want to say but I have a hard time getting it out. Reported he had two sessions while in [facility] prior to discharge. Reported Pain Level Pain Score 0: Self Report Assessment ST Clinical Summary LANGUAGE EVALUATION This patient reported suffering a CVA on , 09/17/22, which resulted in a two day hospital stay at [facility]. As noted above, the patient stated that he knows exactly what he wants to say but he is not always able to verbally express his thoughts. Today the patient exhibited mild receptive aphasia and/or memory issues resulting in difficulty following each complex yes/no question, difficulty following complex directions, and difficulty recalling information from a complex paragraph story presented aloud. During this evaluation his expressive skills were generally within functional limits except for recall of less familiar/more complex names of items (unable to recall pyramid, tongs, and trellis, however with delay and therapist verbal/visual cues, he did eventually recall trellis. Given pyramid, he indicated that nothing came to mind, and with tongs, he stated that he knows exactly what they are and should know the word, but was unable to recall. Speech was 100% intelligible today with no specific speech sound imprecision noted. Patient will be seen 2 times weekly for four weeks to address both receptive and expressive aphasia with a focus on memory strategies to facilitate recall. Thank you for this referral. Plan of Care Interventions Treatment of Language ST Services Indicated
--- NOTE | 2022-11-09 15:44 | PCSTNOTE ---
Patient was contacted concerning returning to . He reports he was notified of a cancellation prior to Deepika and had not been contacted since and also made no attempt to contact outpatient therapy. Today he stated that he would return for a therapy session and was placed on the schedule 11/12 at 2:00 pm.
--- NOTE | 2022-11-12 11:26 | BUSTOPEVAL1 ---
Assessment and note entered by Lulú Ochoa [employer] Evaluation Information Assessment Status Progress Reported Pain Level Pain Score 0: Self Report Assessment ST Clinical Summary PROGRESS NOTE Patient was seen for an outpatient evaluation on 10/07/22 and then one treatment session. The next session was cancelled and patient had not returned since the second session. Therapist contacted patient and he did request follow-up visit. Currently, patient reports he still has a little trouble getting some words out. He was asked to describe his difficulty and he reported, I have a hard time explaining things. He stated, I have a hard time saying 'one. But then stated, I don't know exactly what I mean and was unable to express what he meant by that previous comment. Most of his spontaneous conversation was appropriate however he occasionally produced vague statements, as mentioned above, and then was unable to clarify. A re-evaluation was performed along with specific treatment tasks. Patient again exhibited difficulty with recall of information in short to moderate level paragraph stories read aloud by therapist indicated a mild to moderate auditory comprehension/memory deficit. He exhibited improved ability to name complex, less familiar items but continued to exhibit delays in response time by 5+ seconds, 40% of the time with minimal cues by therapist. Patient completed the [place] Diagnostic Aphasia Evaluation Cookie Theft Picture subtest with delays but adequate speech and language skills. The patient was given two separate tasks for word retrieval at the phrase/sentence levels while using appropriate word choices and sentence productions. He completed these tasks with 80% accuracy with mild delays in response time. Given a specific word-finding task (antonyms) for moderate-level word choices, patient was 80% accurate with delays in response time 5+ seconds, 30% of the time. Therapy will continue one time weekly to address both higher level r
--- NOTE | 2022-11-24 15:16 | PCSTNOTE ---
Session cancelled week of 11/13 due to bad weather. Cancelled week of 11/20 due to hospitalization.
--- NOTE | 2022-12-03 10:19 | STOPDC ---
Assessment and note entered by Lulú Ochoa PHOTOGRAPHER ASSISTANT Evaluation Information Assessment Status Discharge - Pt Not Presen Assessment ST Clinical Summary DISCHARGE SUMMARY The patient was seen for an initial Speech Therapy evaluation which determined some issues with memory/recall and higher-level word finding deficit. Patient would only schedule one visit at a time and then those sessions were cancelled due to inclement weather, patient kandy COVID, and other circumstances. Therefore patient was seen only for an initial evaluation and one treatment session. Therapist contacted patient this date who reported that he is slowly recovering from his COVID episode and stated he does not want to schedule any more sessions until he feels fully recovered and there is no likelihood of bad weather (later in the Spring). Patient is being discharged this date with goals not fully achieved. Patient may return to Speech Therapy when he is ready. Patient will require new physician order at that time. Plan of Care ST Services Indicated No
== END 2022-12-04 15:51 | disposition home or self-care (01) ==
LOC: ANHST 14:00
PROVIDERS: PCP Internal Medicine; Visit Provider Internal Medicine
DX: I69.320 Aphasia following cerebral infarction (principal); I69.328 Other speech and language deficits following cerebral infarction
CPT/HCPCS: 92507; 92523

== ENCOUNTER 2022-11-22 17:18 | Observation (INO) | payer MEDICARE, BC, SELFPAY ==
[2022-11-22] VITALS (7 sets, daily range): BP systolic 131–141; BP diastolic 61–90; PULSE 55–106; RESP 20–26; TEMP 36.6–36.7; O2SAT 97–98; BMI 25.0
--- NOTE | ~2022-11-22 | XR_ITS ---
EXAMINATION: XR chest 1V portable DATE: 11/22/2022 17:54 INDICATION: Cough and shortness of breath. TECHNIQUE: A single frontal view of the chest was obtained. COMPARISON: Chest single view 09/17/2022, CT abdomen and pelvis 07/19/2019 FINDINGS: There is a diffuse interstitial pattern, consistent mild pulmonary edema. No pleural effusi on or pneumothorax. Cardiomegaly is noted. Calcified right hilar and mediastinal lymph nodes are cons istent with old granulomatous disease. IMPRESSION: 1. Mild pulmonary edema. 2. Cardiomegaly. Reviewed, dictated and finalized at location A. ROUTE DELIVERER
--- NOTE | 2022-11-22 17:24 | ECG_ITS ---
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
--- NOTE | 2022-11-22 17:26 | ED.GENADULT ---
HPI - General Adult General Chief complaint: Upper Respiratory Infection Stated complaint: UNWELL WITH COUGH, INCREASE WEAK/LETHARGIC Time Seen by Provider: 11/22/22 17:19 Source: RN notes reviewed History of Present Illness HPI narrative: Patient presents emergency department from home via EMS for cough. Patient states that he had a cough that began yesterday. States the cough has been nonproductive but is persistent states it kept him up all night and that he has been feeling weak with a cough. Denies any fevers or chills he denies any chest pain shortness of breath abdominal pain nausea or vomiting. States he called EMS today because he felt too weak to even get up off the couch Related Data Home Medications Medication Instructions Recorded Confirmed aspirin 81 mg tablet,delayed 81 mg PO DAILY 08/25/19 10/29/22 release (Adult Low Dose Aspirin) clopidogrel 75 mg tablet 75 mg PO DAILY 08/31/19 10/29/22 cholecalciferol (vitamin D3) 25 25 mcg PO DAILY 09/11/21 10/29/22 mcg (1,000 unit) tablet carvedilol 3.125 mg tablet 3.125 mg PO BID 01/08/22 10/29/22 atorvastatin 80 mg tablet 40 mg PO DAILY 09/17/22 10/29/22 [place] 3 Fish oil BYMOUTH 10/29/22 10/29/22 Allergies Allergy/AdvReac Type Severity Reaction Status Date / Time cefuroxime Allergy Unknown Unknown Verified 11/22/22 17:26 phenytoin Allergy Unknown Swelling Verified 11/22/22 17:26 Review of Systems Review of Systems: Gen.: Denies fevers or chills ENT: Denies congestion Respiratory: Denies shortness of breath reports cough CV: Denies chest pain or palpitations GI: Denies abdominal pain nausea, emesis or diarrhea denies burning, urgency, frequency or hematuria Musculoskeletal: Denies back pain or muscle pain Neuro: Reports weakness Skin: Denies rash Except as documented, all other systems reviewed and negative PMFSH Past Medical History Medical History 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 Pre-diabetes Seizure disorder Vitamin D deficiency Surgical History Surgical History History of bilateral carpal tunnel release History of bilateral inguinal hernia repair Laparoscopic repair with mesh of bilateral inguinal hernias on 10/30/2005. Laparoscopic incarcerated recurrent left inguinal hernia repair with ProGripmesh, da Dayron assisted on 08/08/2015. History of cardiac catheterization (02/06/15) History of coronary angioplasty with insertion of stent (02/06/15) PCI/stent to LAD/septal perforating and large diagonal per Dr. August. History of craniotomy (1997) Resection of a benign left-sided meningioma. History of tonsillectomy Family History Family History Mother Cerebrovascular accident Father Family history of osteoporosis Family history of respiratory disorder Social History Social History Social History: The patient lives in his own home, his [place] approximately 3 months ago. They have 2 children, sons Robbi and Gold. 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 Lifelong nonsmoker. No alcohol or illicit substance abuse. Healthcare power of trademark attorney: Robbi Gomez, son. Code status: Full code. Smoking status: Never smoker Alcohol intake: never Substance use: never Substance use type: does not use Lack of Transportation: No Lack of Food: Never True Current Housing: I Do Not Have Housing Concerned About Future Housing: Decline to Answer Difficulty Paying Gas/Electric Bills: Decline to Answer Difficulty Paying for M
[2022-11-22 17:40] LABS: Basophils Absolute Auto 0.1 K/mm3 (0.0-0.1); Basophils Percent Auto 0.7 % (0.2-1.2); Eosinophils Absolute Auto 0.1 K/mm3 (0-0.3); Eosinophils Percent Auto 0.9 % (0-4.4); Immature Granulocyte Absolute 0.02 K/mm3 (0.00-0.031); Immature Granulocyte Percent A 0.3 % (0-0.5); Lymphocytes Absolute Auto 0.52 K/mm3 (0.9-3.2); Mean Corpuscular HGB Conc 33.3 g/dl (32-36); Mean Corpuscular Hemoglobin 29.8 pg (26-34); Mean Corpuscular Volume 89.3 fl (80-100); Monocytes Absolute Auto 0.5 K/mm3 (0.1-0.6); Neutrophils Absolute Auto 6.3 K/mm3 (1.3-6.7); Neutrophils Percent Auto 84.1 % (45.5-73.1); Platelet Count Result 161 k/mm3 (150-375); Red Blood Count 4.03 M/mm3 (4.6-6.20); Red Cell Distribution Width 12.8 % (11.5-14.5); White Blood Count 7.5 K/mm3 (4.5-10.0)
[2022-11-22 17:51] LABS: Alanine Aminotransferase 25 U/L (6-50); Albumin Level 3.8 g/dL (3.5-5.1); Alkaline Phosphatase 71 U/L (38-126); Anion Gap 9 mmol/L (8-16); Aspartate Amino Transferase 29 U/L (17-59); Bilirubin,Total 0.5 mg/dL (0.2-1.3); Blood Urea Nitrogen 16 mg/dL (9-20); Calcium 8.6 mg/dL (8.4-10.2); Carbon Dioxide 19 mmol/L (22-30); Chloride 103 mmol/L (98-107); Estimated CRCL calculation 39 ml/min; Estimated Glomerular Filt Rate 57; Glucose 151 mg/dL (65-110); Potassium 3.8 mmol/L (3.4-5.0); Sodium 131 mmol/L (137-145)
[2022-11-22 17:52] LABS: INR 1.3; Prothrombin Time 15.4 Seconds (11.1-14.7)
[2022-11-22 18:01] LABS: NT Pro B Type Natriuretic Pept 1950 pg/mL (19.9-100); Troponin I 0.022 ng/mL (0.000-0.034)
--- NOTE | 2022-11-22 18:05 | ECG_ITS ---
Measurements Intervals [place] Rate: 99 P: -77 [place]: 242 QRS: -59 QRSD: 132 T: 106 QT: 407 QTc: 524 Interpretive Statements ATRIAL FLUTTER/TACHYCARDIA LEFT ANTERIOR FASCICULAR BLOCK LEFT VENTRICULAR HYPERTROPHY AND ST-T CHANGE ANTEROSEPTAL INFARCT, AGE INDETERMINATE ABNORMAL ECG COMPARED TO ECG 11/22/2022 17:31:27 NO SIGNIFICANT CHANGES Electronically Signed On 11-22-2022 19:54:37 HEALTH/SAFETY JOB TITLES by Lew Clark D.O.
[2022-11-22 18:16] LABS: Influenza A QL RT-PCR Negative (Negative); Influenza B QL RT-PCR Negative (Negative); SARS-CoV-2 RNA PCR Positive
[2022-11-22] MEDS: FUROSEMIDE INJ 40 MG/4 ML VIAL 20 MG IV PUSH (18:35)
[2022-11-22 19:30] LABS: Appearance Urine Clear (Clear); Bilirubin Urine Negative (Negative); Blood Urine 2+ (Negative); Color Urine Yellow (Yellow); Glucose Urine UA Negative (Negative); Ketones Urine Negative (Negative); Leukocyte Esterase Ur Negative LEU/UL (Negative); Nitrate Urine Negative (Negative); Protein Urine Trace mg/dL (Negative); Specific Grav Ur 1.015 (1.001-1.035); Urobilinogen Urine 0.2 mg/dL (<2.0)
--- NOTE | 2022-11-22 19:31 | PC.NURSE ---
Attempted to call report to IMU at this time, receiving RN is busy and will call back when available.
[2022-11-22 19:34] LABS: Bacteria Urine Trace /hpf; WBC Urine 0-3 /hpf
--- NOTE | 2022-11-22 19:44 | PM.IMHP ---
H&P: HPI History of Present Illness Date/Time: 11/22/22 19:44 Chief Complaint: Generalized weakness Narrative: This is an 87-year-old male with past medical history significant for type diabetes mellitus, ischemic cardiomyopathy, seizure disorder, GERD, hypertension, coronary artery disease, [place]. patient presents to the emergency room due to generalized weakness, cough, poor appetite, chills, rigors, night sweats. Patient was found to be positive for COVID-19 placed in observation for further evaluation management and treatment. Review of Systems Review of Systems: Generalized weakness Constitutional: Constitutional: Reports chills, Reports fatigue, Reports fever(s), Reports lethargy, Reports malaise, Reports night sweats, Reports poor appetite and Reports weakness Eyes: Eyes: Denies change in vision ENT: Denies dysphagia and Denies odynophagia Cardiovascular: Cardiovascular: Denies chest pain, Reports leg edema and Denies radiating jaw, neck or arm pain Respiratory: Respiratory: Reports chest congestion, Reports cough and Reports dyspnea Gastrointestinal: Gastrointestinal: Denies abdominal pain, Denies dyspepsia, Denies heartburn, Denies diarrhea, Denies nausea and Denies vomiting Genitourinary: Genitourinary: Denies dysuria Musculoskeletal: Musculoskeletal: Reports muscle weakness Integumentary/Breasts: Skin/Breast: Denies rash Neurologic: Denies focal weakness and Denies Sensory deficit (Neuro) Psychiatric: Psychiatric: Reports no additional psychiatric complaints and Reports as per HPI Endocrine: Endocrine: Denies cold intolerance, Denies flushing, Denies heat intolerance, Denies polyphagia, Denies polydipsia and Denies palpitations Hematologic/Lymphatic: Hematologic/Lymphatic: Reports no additional hematologic/lymphatic complaints and Reports as per HPI Allergic/Immunologic: Allergic/Immunologic: Reports no additional allergic/immunologic complaints and Reports as per HPI PMF Past Medical History Medical History (Updated 11/22/22 @ 23:23 by Cody Herbert MD) 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 Pre-diabetes Seizure disorder Vitamin D deficiency Surgical History Surgical History History of bilateral carpal tunnel release History of bilateral inguinal hernia repair Laparoscopic repair with mesh of bilateral inguinal hernias on 10/30/2005. Laparoscopic incarcerated recurrent left inguinal hernia repair with ProGripmesh, da Dayron assisted on 08/08/2015. History of cardiac catheterization (02/06/15) History of coronary angioplasty with insertion of stent (02/06/15) PCI/stent to LAD/septal perforating and large diagonal per Dr. August. History of craniotomy (1997) Resection of a benign left-sided meningioma. History of tonsillectomy Family History Family History Mother Cerebrovascular accident Father Family history of osteoporosis Family history of respiratory disorder Social History Social History Social History: The patient lives in his own home, his [place] approximately 3 months ago. They have 2 children, sons Robbi and Gold. 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 Lifelong nonsmoker. No alcohol or illicit substance abuse. Healthcare power of traffic law attorney: Robbi Gomez, son. Code status: Full code. Smoking status: Never smoker Alcohol intake: never Substance use: never Substance use type: does not use Lack of Transportation: No Lack of Food: Never True Current Housing: I Have Housing Concerned About Future Housing: No
[2022-11-22 19:49] LABS: Add Urine Microscopic? YES
--- NOTE | 2022-11-22 20:00 | ADMGEN ---
This patient, Kirill Jean, was admitted to IMU Room 231-01. Patient/family oriented to hospital policies and general routines including ID bracelet, bed and alarms, visiting hours, pain management, procedures, bathroom and other care routines, personal items, smoking policy, room service/diet, and visiting hours. Information on how to activate the Rapid Response Team has been discussed. Patient/Family are encouraged to report perceived risks to care and to ask questions if they do not understand what they are told or what they should do.
[2022-11-22 22:18] LABS: Troponin I 0.062 ng/mL (0.000-0.034)
[2022-11-22] MEDS: TOPIRAMATE 100 MG TABLET 200 MG PO (23:56)
[2022-11-22] MEDS: carvediloL 3.125 MG TABLET PO (23:56)
[2022-11-23] VITALS (15 sets, daily range): BP systolic 113–156; BP diastolic 61–73; PULSE 54–89; RESP 18–24; TEMP 36.3–36.9; O2SAT 94–100
--- NOTE | 2022-11-23 | ECHO_ITS ---
Patient Info Name: Kirill Jean Age: 87 years : 1935 Gender: Male Ht: 69 in Wt: 169 lbs BSA: 1.94 m2 HR: 57 bpm BP: 113 / 61 mmHg Heart Rhythm: Atrial Fibrillation Technical Quality: Fair Exam Date: 11/23/2022 4:20 PM Exam Location: [facility] Patient Status: Inpatient Admit Date: 11/22/2022 Staff Ordering Physician: Cody Herbert MD In Class Special Education Teacher: Naa Sofia RDCS Attending Provider: Amilcar Morrison MD Referring Physician: Keon FRANK; Exam Type: CA echo doppler color flow Study Info Indications - AFIB Complete two-dimensional, color flow and Doppler transthoracic echocardiogram is performed. Summary 1. Technically difficult study with limited views. 2. Left ventricular chamber dimension is normal. 3. Left ventricular systolic function is mildly reduced, estimated at 40-45%. The apical cap is akinetic. 4. There is mildly increased left ventricular wall thickness. 5. The left ventricular diastolic function is grade I diastolic dysfunction. 6. Right ventricular systolic function is normal. 7. Right atrial chamber dimension is mildly enlarged. 8. There is mild to moderate mitral valve regurgitation. 9. There is mild tricuspid valve regurgitation. Left Ventricle Left ventricular chamber dimension is normal. Left ventricular systolic function is mildly reduced, estimated at 40-45%. The apical cap is akinetic. There is mildly increased left ventricular wall thickness. The left ventricular diastolic function is grade I diastolic dysfunction. Right Ventricle Right ventricular chamber dimension is normal. Right ventricular systolic function is normal. Left Atria Left atrial chamber dimension is normal. Right Atria Right atrial chamber dimension is mildly enlarged. Atrial Septum Intact interatrial septum visualized by color flow imaging. Aortic Valve There is no aortic valve stenosis. There is no aortic valve regurgitation. Pulmonic Valve The pulmonic valve is not well visualized. Mitral Valve There is mild to moderate mitral valve regurgitation. Tricuspid Valve There is mild tricuspid valve regurgitation. Pericardium/Pleural There is no pericardial effusion. Inferior Vena Cava Normal inferior vena cava with >50% collapse upon inspiration consistent with normal right atrial pressure, 3 mmHg. Aorta The aortic root size at the sinus of Valsalva is not well visualized. Left Ventricular Outflow Tract Name Value Normal LVOT Doppler LVOT Peak Gradient 5 mmHg LVOT Mean Gradient 3 mmHg LVOT VTI 20 cm LVOT VTI/AV VTI Ratio 0.8 Pulmonic Valve Name Value Normal RVOT Doppler RVOT Peak Gradient 1 mmHg PV Doppler PV Peak Gradient 4 mmHg Mitral Valve
[2022-11-23 01:12] LABS: Troponin I 0.097 ng/mL (0.000-0.034)
[2022-11-23 05:17] LABS: Basophils Percent Auto 0.3 % (0.2-1.2); Eosinophils Absolute Auto 0.2 K/mm3 (0-0.3); Eosinophils Percent Auto 2.7 % (0-4.4); Hematocrit 34.7 % (42.0-52.0); Hemoglobin 11.6 g/dL (14.0-18.0); Immature Granulocyte Absolute 0.02 K/mm3 (0.00-0.031); Immature Granulocyte Percent A 0.3 % (0-0.5); Lymphocytes Absolute Auto 0.91 K/mm3 (0.9-3.2); Lymphocytes Percent Auto 15.1 % (18.3-44.2); Mean Corpuscular HGB Conc 33.4 g/dl (32-36); Mean Corpuscular Hemoglobin 29.8 pg (26-34); Mean Corpuscular Volume 89.2 fl (80-100); Monocytes Absolute Auto 0.7 K/mm3 (0.1-0.6); Monocytes Percent Auto 12.1 % (2.6-8.5); Neutrophils Absolute Auto 4.2 K/mm3 (1.3-6.7); Neutrophils Percent Auto 69.5 % (45.5-73.1); Platelet Count Result 141 k/mm3 (150-375); Red Blood Count 3.89 M/mm3 (4.6-6.20); Red Cell Distribution Width 13.1 % (11.5-14.5)
[2022-11-23 05:27] LABS: Alanine Aminotransferase 24 U/L (6-50); Albumin Level 3.6 g/dL (3.5-5.1); Alkaline Phosphatase 62 U/L (38-126); Anion Gap 6 mmol/L (8-16); Aspartate Amino Transferase 35 U/L (17-59); Bilirubin,Total 0.5 mg/dL (0.2-1.3); Blood Urea Nitrogen 15 mg/dL (9-20); Calcium 8.4 mg/dL (8.4-10.2); Carbon Dioxide 22 mmol/L (22-30); Chloride 102 mmol/L (98-107); Estimated CRCL calculation 42 ml/min; Estimated Glomerular Filt Rate > 60; Glucose 116 mg/dL (65-110); Potassium 3.1 mmol/L (3.4-5.0); Sodium 130 mmol/L (137-145)
[2022-11-23] MEDS: MULTIVITAMINS THERAPEUTIC TAB (*BKC) 1 TABLET PO (08:41)
[2022-11-23] MEDS: CHOLECALCIFEROL 1,000 UNITS TABLET 1000 UNITS PO (08:41)
[2022-11-23] MEDS: OMEGA 3 POLYUNSAT FATTY ACIDS 1 GM CAP PO (08:41)
[2022-11-23] MEDS: EZETIMIBE 10 MG TABLET BY MOUTH (08:41)
[2022-11-23] MEDS: lisinopriL 5 MG TABLET PO (08:41)
[2022-11-23] MEDS: TOPIRAMATE 100 MG TABLET 200 MG PO ×2 (08:41→20:05)
[2022-11-23] MEDS: carvediloL 3.125 MG TABLET PO ×2 (08:41→20:05)
[2022-11-23] MEDS: ASPIRIN 81 MG ENTERIC TABLET PO (08:41)
[2022-11-23] MEDS: ATORVASTATIN 40 MG TABLET PO (08:41)
[2022-11-23] MEDS: CLOPIDOGREL BISULFATE 75 MG TABLET PO (08:41)
--- NOTE | 2022-11-23 09:21 | PM.CNCAR ---
Assessment and Plan Assessment and plan (1) Atrial fibrillation and flutter: Code(s): I48.91 - Unspecified atrial fibrillation; I48.92 - Unspecified atrial flutter Status: Acute (2) Ischemic cardiomyopathy: Code(s): I25.5 - Ischemic cardiomyopathy Status: Acute (3) Pneumonia due to COVID-19 virus: Code(s): U07.1 - COVID-19; J12.82 - Pneumonia due to coronavirus disease 2019 Status: Acute Plan Episode of atrial flutter this hospitalization in the setting of COVID pneumonia. He does not have a history of atrial arrhythmias. He has returned to sinus rhythm at the time of my visit with him. He is on a low dose of coreg which should be continued. He has a FLMIN2Jeod score of at least 5, so anticoagulation is indicated. Will discontinue ASA and start DOAC in the form of Xarelto 20mg nightly. Will order 30 day personnel monitor to evaluate AF recurrence/burden - our office will call him to make this appointment. History of Present Illness History of Present Illness Consult date/time: 11/23/22 09:21 Reason For Visit: CHF, COVID Narrative: Mr. Jean is an 87-year-old male with a history of coronary artery disease, ischemic cardiomyopathy, and a recent stroke. This is a patient who is followed in our office by Dr. August. Mr. Jean presents to the hospital now with a chief complaint of generalized weakness. Patient states that in addition to feeling weak he has had a productive cough for several days. He has been found to be COVID positive. His inital EKG in the emergency department demonstrated atrial fibrillation with rapid ventricular response. He does not recall feeling any palpitations, chest pain, or shortness of breath at any time. At the time of my visit with him he is back in sinus rhythm. He is resting comfortably in bed and does not have any complaints at this time. Review of Systems Constitutional: Constitutional: Denies chills, Denies fever(s), Denies headache(s) and Denies malaise Eyes: Eyes: Denies change in vision ENT: Reports Normal hearing present, Denies dizziness, Denies headache(s) and Denies hearing loss Cardiovascular: Cardiovascular: Denies chest pain, Denies chest pain at rest, Denies chest pain with activity, Denies syncope, Denies leg edema, Denies palpitations, Denies dyspnea and Denies dyspnea on exertion Respiratory: Respiratory: Reports cough, Denies dyspnea, Denies dyspnea on exertion and Denies wheezing Gastrointestinal: Gastrointestinal: Denies abdominal pain, Denies constipation and Denies diarrhea Genitourinary: Genitourinary: Denies hematuria and Denies dysuria Musculoskeletal: Musculoskeletal: Denies myalgias, Denies arthralgias and Denies muscle cramps Integumentary/Breasts: Skin/Breast: Denies wounds Neurologic: Reports Normal hearing present, Denies confusion, Denies dizziness, Denies syncope and Denies headache(s) Psychiatric: Psychiatric: Denies anxiety, Denies confusion and Denies depression Endocrine: Endocrine: Denies cold intolerance, Denies flushing, Denies heat intolerance and Denies palpitations Hematologic/Lymphatic: Hematologic/Lymphatic: Denies easy bleeding and Denies easy bruising Allergic/Immunologic: Allergic/Immunologic: Denies wheezing PMFSH Past Medical History Medical History (Updated 11/22/22 @ 23:23 by Cody Herbert MD) 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 Pre-diabetes Seizure disorder Vitamin D deficiency Surgical History Surgical History History of bilateral carpal tunnel release History of bilateral inguinal hernia repair Laparoscopic repair with mesh of bi
[2022-11-23 10:18] LABS: Magnesium 2.1 mg/dL (1.6-2.3)
[2022-11-23] MEDS: POTASSIUM CHLORIDE 20 MEQ TABLET 40 MEQ PO (10:25)
--- NOTE | 2022-11-23 14:27 | PM.IMPN ---
Progress Note: A&P Assessment and Plan (1) Atrial fibrillation and flutter: Code(s): I48.91 - Unspecified atrial fibrillation; I48.92 - Unspecified atrial flutter Status: Acute Assessment and Plan: Admit to IMU Continuous telemetry EKG reviewed Echocardiogram in a.m. Cardiology consult 11/23/2022 interval history: 87-year-old male presents emergency department with complaint of generalized weakness is found to be positive COVID-19 and developed atrial fibrillation with RVR however patient heart rate was below 100 home regimen was continued patient remains clinically stable and will be seen by audio/visual operator and further recommendation to follow, patient with COVID-19 his room air and remains clinically stable no treatment is required will continue to monitor. (2) Pneumonia due to COVID-19 virus: Code(s): U07.1 - COVID-19; J12.82 - Pneumonia due to coronavirus disease 2018 Status: Acute Assessment and Plan: Not requiring supplemental oxygen Continue to monitor (3) Ischemic cardiomyopathy: Code(s): I25.5 - Ischemic cardiomyopathy Status: Acute Assessment and Plan: Echocardiogram in a.m. (4) Coronary artery disease: Qualifiers: Coronary Disease-Associated Artery/Lesion type: unspecified vessel or lesion type [place] vs. transplanted heart: [place] heart Associated angina: unspecified whether angina present Qualified Code(s): I25.10 - Atherosclerotic heart disease of [place] coronary artery without angina pectoris Code(s): I25.10 - Atherosclerotic heart disease of [place] coronary artery without angina pectoris Status: Acute Assessment and Plan: Denies chest pain Continue home meds (5) GERD (gastroesophageal reflux disease): Qualifiers: Esophagitis presence: esophagitis presence not specified Qualified Code(s): K21.9 - Gastro-esophageal reflux disease without esophagitis Code(s): K21.9 - Gastro-esophageal reflux disease without esophagitis Status: Acute Assessment and Plan: PPI (6) Seizure disorder: Code(s): G40.909 - Epilepsy, unspecified, not intractable, without status epilepticus Status: Acute Assessment and Plan: Continue home meds Subjective Date/time seen: 11/23/22 14:27 Chief Complaint: Generalized weakness HPI-Narrative: This is an 87-year-old male with past medical history significant for type diabetes mellitus, ischemic cardiomyopathy, seizure disorder, GERD, hypertension, coronary artery disease, [place]. patient presents to the emergency room due to generalized weakness, cough, poor appetite, chills, rigors, night sweats.? Patient was found to be positive for COVID-19 placed in observation for further evaluation management and treatment.? 11/23/2022 interval history: 87-year-old male presents emergency department with complaint of generalized weakness is found to be positive COVID-19 and developed atrial fibrillation with RVR however patient heart rate was below 100 home regimen was continued patient remains clinically stable and will be seen by audio/visual operator and further recommendation to follow, patient with COVID-19 his room air and remains clinically stable no treatment is required will continue to monitor. Review of Systems Constitutional: Constitutional: Reports chills, Reports fatigue, Reports fever(s), Reports lethargy, Reports malaise, Reports night sweats, Reports poor appetite and Reports weakness Exam Narrative: elderly frail Patient is comfortable, NAD HEENT: eyes are clear and none icteric LUNGS: normal respiratory effort ABD: not distended Lower extremities: no edema SKIN: nonjaundiced Neuro: grossly intact. Objective Data Vital Signs Vital Signs: Vital Signs - 24 hr 11/22/22 17:22 11/22/22 18:35 11/22/22 19:27 Temperature 97.9 F Pulse Rate 106 H 100 104 H Respiratory Rate 26 H 22 H 21 H Blood Pressure 141/90 H 135/78 134/88 Pulse Oximetry 98 97 98
[2022-11-24] VITALS (7 sets, daily range): BP systolic 118–156; BP diastolic 55–77; PULSE 53–80; RESP 16–20; TEMP 36.4–36.6; O2SAT 97–99
[2022-11-24] MEDS: CHOLECALCIFEROL 1,000 UNITS TABLET 1000 UNITS PO (08:48)
[2022-11-24] MEDS: OMEGA 3 POLYUNSAT FATTY ACIDS 1 GM CAP PO (08:48)
[2022-11-24] MEDS: ATORVASTATIN 40 MG TABLET PO (08:48)
[2022-11-24] MEDS: MULTIVITAMINS THERAPEUTIC TAB (*BKC) 1 TABLET PO (08:48)
[2022-11-24] MEDS: ASPIRIN 81 MG ENTERIC TABLET PO (08:48)
[2022-11-24] MEDS: CLOPIDOGREL BISULFATE 75 MG TABLET PO (08:48)
[2022-11-24] MEDS: lisinopriL 5 MG TABLET PO (08:48)
[2022-11-24] MEDS: TOPIRAMATE 100 MG TABLET 200 MG PO (08:49)
[2022-11-24] MEDS: carvediloL 3.125 MG TABLET PO (08:49)
[2022-11-24] MEDS: EZETIMIBE 10 MG TABLET BY MOUTH (08:49)
[2022-11-24 10:43] LABS: Hematocrit 35.8 % (42.0-52.0); Hemoglobin 11.8 g/dL (14.0-18.0); Mean Corpuscular Hemoglobin 29.9 pg (26-34); Mean Corpuscular Volume 90.6 fl (80-100); Mean Platelet Volume 9.2 fl (7.4-10.4); Platelet Count Result 132 k/mm3 (150-375); Red Blood Count 3.95 M/mm3 (4.6-6.20); Red Cell Distribution Width 13.2 % (11.5-14.5); White Blood Count 3.4 K/mm3 (4.5-10.0)
[2022-11-24 10:54] LABS: Anion Gap 7 mmol/L (8-16); Blood Urea Nitrogen 17 mg/dL (9-20); Carbon Dioxide 21 mmol/L (22-30); Chloride 105 mmol/L (98-107); Estimated CRCL calculation 46 ml/min; Estimated Glomerular Filt Rate > 60; Glucose 202 mg/dL (65-110); Magnesium 2.1 mg/dL (1.6-2.3); Sodium 133 mmol/L (137-145)
--- NOTE | 2022-11-24 14:55 | PM.DS ---
DS: Admitting Diagnosis Discharge Date 11/24/2021 Admitting Diagnosis generalized weakness DS: Discharge Diagnosis Discharge Diagnosis (1) Atrial fibrillation and flutter: Code(s): I48.91 - Unspecified atrial fibrillation; I48.92 - Unspecified atrial flutter Status: Acute Assessment and Plan: Admit to IMU Continuous telemetry EKG reviewed Echocardiogram in a.m. Cardiology consult 11/23/2022 interval history: 87-year-old male presents emergency department with complaint of generalized weakness is found to be positive COVID-19 and developed atrial fibrillation with RVR however patient heart rate was below 100 home regimen was continued patient remains clinically stable and will be seen by wire splicer and further recommendation to follow, patient with COVID-19 his room air and remains clinically stable no treatment is required will continue to monitor. (2) Pneumonia due to COVID-19 virus: Code(s): U07.1 - COVID-19; J12.82 - Pneumonia due to coronavirus disease 2018 Status: Acute Assessment and Plan: Not requiring supplemental oxygen Continue to monitor (3) Ischemic cardiomyopathy: Code(s): I25.5 - Ischemic cardiomyopathy Status: Acute Assessment and Plan: Echocardiogram in a.m. (4) Coronary artery disease: Qualifiers: Coronary Disease-Associated Artery/Lesion type: unspecified vessel or lesion type [place] vs. transplanted heart: [place] heart Associated angina: unspecified whether angina present Qualified Code(s): I25.10 - Atherosclerotic heart disease of [place] coronary artery without angina pectoris Code(s): I25.10 - Atherosclerotic heart disease of [place] coronary artery without angina pectoris Status: Acute Assessment and Plan: Denies chest pain Continue home meds (5) GERD (gastroesophageal reflux disease): Qualifiers: Esophagitis presence: esophagitis presence not specified Qualified Code(s): K21.9 - Gastro-esophageal reflux disease without esophagitis Code(s): K21.9 - Gastro-esophageal reflux disease without esophagitis Status: Acute Assessment and Plan: PPI (6) Seizure disorder: Code(s): G40.909 - Epilepsy, unspecified, not intractable, without status epilepticus Status: Acute Assessment and Plan: Continue home meds DS: Summary Hospital Course Reason for hospitalization: Generalized weakness Narrative: This is an 87-year-old male with past medical history significant for type diabetes mellitus, ischemic cardiomyopathy, seizure disorder, GERD, hypertension, coronary artery disease, [place]. patient presents to the emergency room due to generalized weakness, cough, poor appetite, chills, rigors, night sweats.? Patient was found to be positive for COVID-19 placed in observation for further evaluation management and treatment.? Hospital Course: ?87-year-old male presents emergency department with complaint of generalized weakness is found to be positive COVID-19 and developed atrial fibrillation with RVR however patient heart rate was below 100 home regimen was continued patient remains clinically stable and will be seen by wire splicer and further recommendation to follow, patient with COVID-19 his room air? and remains clinically stable no treatment is required will continue to monitor. patient seen by wire splicer patient has converted to sinus rhythm and recommended to continue home dose of Coreg, patient's [id number] score of at least 5, and wire splicer started the patient on Xarelto and stopped aspirin, patient will have 30 day front desk monitor and will follow-up with wire splicer, will discharge the patient today Time Spent with Patient Time attestation: Total time spent providing and/or coordinating discharge services: Exam Narrative: elderly frail Patient is comfortable, NAD HEENT: eyes are clear and none icteric LUNGS: normal respiratory effort ABD: not distended
== END 2022-11-24 15:30 | disposition home or self-care (01) ==
LOC: ANHED 19:03 → ANHIMU 11-24 14:55
PROVIDERS: Admitting Provider Internal Medicine; Emergency Provider Emergency Medicine; PCP Internal Medicine; Visit Provider Family Medicine
DX: I48.91 Unspecified atrial fibrillation (principal); U07.1 COVID-19; J12.82 Pneumonia due to coronavirus disease 2019; I25.5 Ischemic cardiomyopathy; I25.10 Atherosclerotic heart disease of native coronary artery without angina pectoris; K21.9 Gastro-esophageal reflux disease without esophagitis; G40.909 Epilepsy, unspecified, not intractable, without status epilepticus; I25.2 Old myocardial infarction; I11.0 Hypertensive heart disease with heart failure; I50.9 Heart failure, unspecified; Z86.73 Personal history of transient ischemic attack (TIA), and cerebral infarction without residual deficits; I08.1 Rheumatic disorders of both mitral and tricuspid valves; M10.9 Gout, unspecified; J81.1 Chronic pulmonary edema; E11.9 Type 2 diabetes mellitus without complications; E78.5 Hyperlipidemia, unspecified; E55.9 Vitamin D deficiency, unspecified; R94.31 Abnormal electrocardiogram [ECG] [EKG]; Z79.82 Long term (current) use of aspirin; Z79.02 Long term (current) use of antithrombotics/antiplatelets; Z79.899 Other long term (current) drug therapy
CPT/HCPCS: 36415; 71045; 80048; 80053; 81001; 83735; 83880; 84484; 85025; 85027; 85610; 85730; 87636; 93005; 93306; 96374; 99285; A9270; G0378; J1940

== ENCOUNTER 2023-12-26 19:20 | Observation (INO) | payer MEDICARE, BC, SELFPAY ==
--- NOTE | ~2023-12-26 | XR_ITS ---
EXAMINATION: XR abdomen/kub 1V DATE: 12/28/2023 05:49 INDICATION: Fecal impaction. TECHNIQUE: A supine view of the abdomen on 2 radiographs was obtained. COMPARISON: CT abdomen and pelvis 12/26/2023 FINDINGS: There are no dilated loops of bowel. There is a moderate volume of stool in the colon. Ther e are surgical clips from hernia repairs. IMPRESSION: 1. Nonobstructive bowel gas pattern. Reviewed, dictated and finalized at location E. ING AID CONSULTANT
--- NOTE | ~2023-12-26 | CT_ITS ---
EXAMINATION: CT abdomen pelvis w con DATE: 12/26/2023 21:27 INDICATION: abdominal pain, diarrhea TECHNIQUE: Computed tomography (CT) of the abdomen and pelvis was performed with 100 mL Omnipaque-350 intravenous contrast. Automated exposure control and iterative reconstruction technique were employe d. The dose-length product was 427.79 mGy-cm. COMPARISON: 07/19/2019. FINDINGS: Upper abdominal motion artifact. Lower thorax: Cardiomegaly. Coronary artery calcifications. Mild dependent scar/atelectasis. Liver: Granulomatous calcifications. Subcentimeter left lobe hypodensity, likely cyst or hemangioma. Biliary/Gallbladder: Cholelithiasis, without inflammatory changes. No bile duct dilation. Pancreas: No mass or duct dilation. Spleen: Granulomas calcifications. Adrenals:1.8 cm left and 1.2 cm right indeterminate density adrenal nodules, demonstrating long-term stability. Kidneys: No hydronephrosis or suspicious mass. Subcentimeter right lower pole hypodensity, likely cys t. GI tract: Small hiatal hernia. Mild distal esophageal and gastric wall edema. No small bowel dilation . Dilation of the transverse colon to 8 cm. The rectum is dilated to 6.7 cm by formed stool with mild surrounding stranding. Large volume of colonic stool. Appendix not confidently visualized Mesentery/Peritoneum: No ascites, mass, or free air. Retroperitoneum: No mass. Atherosclerotic abdominal aortic and/or arterial calcifications. 3.4 x 3.7 cm saccular infrarenal abdominal aortic aneurysm. Pelvis: Distended urinary bladder. Prostatomegaly. Soft Tissues: Soft tissues and body wall unremarkable. Status post inguinal hernia repair. Bones: No acute osseous finding. IMPRESSION: Mild esophagitis/gastritis. Gallbladder hydrops with cholelithiasis, possibly due to fasting. No CT evidence of cholecystitis. Co rrelate with findings of right upper quadrant pain and biliary labs. Marked urinary bladder distention likely secondary to outlet obstruction from prostatomegaly. 3.4 x 3.7 cm saccular infrarenal abdominal aortic aneurysm. Dilated transverse colon, presumably chronic, no transition point. Possible fecal impaction. Mild surrounding inflammatory changes can be seen with early stercoral coli tis. Large volume of colonic stool, correlate for clinical findings of constipation. Reviewed, dictated and finalized at location K. RINARY ASSISTANT TECHNICIAN IMPRESSION: Mild esophagitis/gastritis. Gallbladder hydrops with cholelithiasis, possibly due to fasting. No CT evidenc e of cholecystitis. Correlate with findings of right upper quadrant pain and bi liary labs. Marked urinary bladder distention likely secondary to outlet obstruction from p rostatomegaly. 3.4 x 3.7 cm saccular infrarenal abdominal aortic aneurysm. Dilated transverse colon, presumably chronic, no transition point. Possible fecal impaction. Mild surrounding inflammatory changes can be seen wit h early stercoral colitis. Large volume of colonic stool, correlate for clinical findings of constipation.
[2023-12-26 19:20] VITALS: BP 127/73; PULSE 88; RESP 23; TEMP 36.6; O2SAT 98
--- NOTE | 2023-12-26 19:42 | PC.NURSE ---
Pt using bedside commode at this time. Two sons at bedside.
[2023-12-26] MEDS: SODIUM CHLORIDE 0.9% IV 1,000 ML 999 ML IV CONT (20:05)
[2023-12-26 20:13] LABS: Basophils Percent Auto 0.2 % (0.2-1.2); Hematocrit 37.7 % (42.0-52.0); Hemoglobin 12.5 g/dL (14.0-18.0); Immature Granulocyte Absolute 0.04 K/mm3 (0.00-0.031); Immature Granulocyte Percent A 0.3 % (0-0.5); Lymphocytes Absolute Auto 0.84 K/mm3 (0.9-3.2); Lymphocytes Percent Auto 6.7 % (18.3-44.2); Mean Corpuscular HGB Conc 33.2 g/dl (32-36); Mean Corpuscular Hemoglobin 29.4 pg (26-34); Mean Corpuscular Volume 88.7 fl (80-100); Mean Platelet Volume 9.7 fl (7.4-10.4); Monocytes Absolute Auto 0.6 K/mm3 (0.1-0.6); Monocytes Percent Auto 4.7 % (2.6-8.5); Neutrophils Percent Auto 88.1 % (45.5-73.1); Platelet Count Result 187 k/mm3 (150-375); Red Blood Count 4.25 M/mm3 (4.6-6.20); Red Cell Distribution Width 13.1 % (11.5-14.5); White Blood Count 12.5 K/mm3 (4.5-10.0)
[2023-12-26 20:28] LABS: Alanine Aminotransferase 22 U/L (6-50); Alkaline Phosphatase 68 U/L (38-126); Anion Gap 10 mmol/L (8-16); Aspartate Amino Transferase 34 U/L (17-59); Blood Urea Nitrogen 21 mg/dL (9-20); Calcium 9.4 mg/dL (8.4-10.2); Carbon Dioxide 16 mmol/L (22-30); Chloride 106 mmol/L (98-107); Estimated CRCL calculation 51 ml/min; Estimated Glomerular Filt Rate > 60; Glucose 150 mg/dL (65-110); Magnesium 2.3 mg/dL (1.6-2.3); Sodium 132 mmol/L (137-145)
[2023-12-26 20:29] LABS: Lactic Acid Reflex 0.9 mmol/L (0.7-2.0)
[2023-12-26] MEDS: ONDANSETRON INJ 4 MG/2 ML VIAL IV PUSH (20:44)
--- NOTE | 2023-12-26 21:15 | PC.NURSE ---
Pt to radiology at this time.
[2023-12-26 22:24] VITALS: BP 124/72; PULSE 96; RESP 18; O2SAT 98
[2023-12-26 22:55] LABS: Appearance Urine Clear (Clear); Bacteria Urine None Seen /hpf; Bilirubin Urine Negative (Negative); Blood Urine 1+ (Negative); Color Urine Yellow (Yellow); Glucose Urine UA Negative (Negative); Ketones Urine Negative (Negative); Leukocyte Esterase Ur Negative LEU/UL (Negative); Nitrate Urine Negative (Negative); Non Pathogenic Casts 0-2; Protein Urine 1+ mg/dL (Negative); RBC Urine 21-50 /hpf (0-2); Specific Grav Ur 1.018 (1.001-1.035); Squamous Epithelial Cell Urine None seen /hpf (Few); WBC Urine 0-5 /hpf
[2023-12-26 23:02] LABS: Add Urine Microscopic? YES
[2023-12-26] MEDS: DOCUSATE SODIUM 400 MG/400 ML ENEMA RECTAL (23:02)
--- NOTE | 2023-12-26 23:03 | PC.NURSE ---
Pt tolerated enema well. Pt sitting on commode at this time. Call light and toilet paper within reach.
[2023-12-26 23:36] VITALS: BP 141/83; PULSE 95; RESP 18; O2SAT 98
--- NOTE | 2023-12-26 23:37 | PC.NURSE ---
This RN assisted pt off of commode and back into bed. Pt able to have small BM. Pt states feeling slightly relieved. Pt resting comfortably with call light within reach and on monitor.
--- NOTE | 2023-12-27 00:31 | ED.GENADULT ---
HPI - General Adult General Chief complaint: Nausea/Vomiting/Diarrhea Stated complaint: diarrhea Time Seen by Provider: 12/26/23 19:42 History of Present Illness HPI narrative: patient 88-year-old gentleman who presents emergency department with chief complaint of abdominal pain and diarrhea. Patient reports throughout the day he has been having liquid stool and feels as though he keeps having to have bowel movements. The patient reports that his abdomen has been uncomfortable with this and just cannot get comfortable. Related Data Home Medications Medication Instructions Recorded Confirmed clopidogrel 75 mg tablet 75 mg PO DAILY 08/31/19 12/07/23 cholecalciferol (vitamin D3) 25 25 mcg PO DAILY 09/11/21 12/07/23 mcg (1,000 unit) tablet carvedilol 3.125 mg tablet 3.125 mg PO BID 01/08/22 12/07/23 [place] 3 Fish oil 1 cap BYMOUTH DAILY 10/29/22 12/07/23 atorvastatin 80 mg tablet 80 mg PO DAILY 12/02/22 12/07/23 Allergies Allergy/AdvReac Type Severity Reaction Status Date / Time cefuroxime Allergy Unknown Unknown Verified 12/26/23 19:36 phenytoin Allergy Unknown Swelling Verified 12/26/23 19:36 Review of Systems Review of Systems: A 10 system review of systems was completed on the patient and is negative except for what is stated in the HPI. Nursing and ancillary documentation was reviewed. 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 Pneumonia due to COVID-19 virus Pre-diabetes Seizure disorder Vitamin D deficiency Surgical History Surgical History History of bilateral carpal tunnel release History of bilateral inguinal hernia repair Laparoscopic repair with mesh of bilateral inguinal hernias on 10/30/2005. Laparoscopic incarcerated recurrent left inguinal hernia repair with ProGripmesh, da Dayron assisted on 08/08/2015. History of cardiac catheterization (02/06/15) History of coronary angioplasty with insertion of stent (02/06/15) PCI/stent to LAD/septal perforating and large diagonal per Dr. August. History of craniotomy (1997) Resection of a benign left-sided meningioma. History of tonsillectomy Family History Family History Mother Cerebrovascular accident Father Family history of osteoporosis Family history of respiratory disorder Social History Social History Social History: The patient lives in his own home, his [place] approximately 3 months ago. They have 2 children, sons Robbi and Gold. 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 Lifelong nonsmoker. No alcohol or illicit substance abuse. Healthcare power of attorney at law: Robbi Gomez, son. Code status: Full code. Smoking status: Never smoker Alcohol intake: never Substance use: never Substance use type: does not use Lack of Transportation: No Lack of Food: Never True Current Housing: I Have Housing Concerned About Future Housing: No Difficulty Paying Gas/Electric Bills: No Difficulty Paying for Meds: No Currently Unemployed: No Education: Master's Degree or Higher Difficulty w/ Childcare or Family Care: No Living arrangements: alone Gender identity (if verbalized by the patient): Male Spiritual care concerns: No Exam Narrative: GENERAL: Well-appearing, well-nourished, and in no acute distress. HEAD: Normocephalic, atraumatic. EYES: PERRLA and EOMI. ENT: Nares clear, no rhinorrhea or epistaxis. Mucous membranes moist. NECK:
--- NOTE | 2023-12-27 00:49 | PM.IMHP ---
H&P: HPI History of Present Illness Date/Time: 12/27/23 00:49 Chief Complaint: Diarrhea Narrative: This is a pleasant 87-year-old male with significant history for pre diabetes, ischemic cardiomyopathy, CAD status post [place], GERD, hypertension, gout, hyperlipidemia atrial fibrillation on Xarelto presenting with complaints of 1 day of persistent brown color diarrhea associated with abdominal pain discomfort diffuse. The patient has not had a bowel movement 3 days prior to the diarrhea starting. Typically has 1 or 2 bowel movements a day and has had no issues otherwise. Denies nausea vomiting fever chills chest pain shortness of breath or issues with urinary retention. The patient reports he does not believe in colonoscopy and has never had one. In the emergency department patient was found to have white count of 12.5 neutrophilia, urinary retention with Mobley catheter placed and approximately 1.[address] abdomen pelvis with contrast demonstrating marked urinary bladder distention secondary to outlet obstruction from prostatomegaly, gallbladder hydrops, 3.4 x 3.7 cm saccular infrarenal abdominal aortic aneurysm, dilated transverse colon, possible fecal impaction with mild surrounding inflammatory changes, large volume colonic stool. ER physician attempted to perform manual fecal disimpaction without much removed however large stool burden was appreciated. Patient also received Colace enema. Patient to be admitted on 12/27/2023 for observation as he still feels weak and generally miserable in for further management of fecal impaction. 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 Pneumonia due to COVID-19 virus Pre-diabetes Seizure disorder Vitamin D deficiency Surgical History Surgical History History of bilateral carpal tunnel release History of bilateral inguinal hernia repair Laparoscopic repair with mesh of bilateral inguinal hernias on 10/30/2005. Laparoscopic incarcerated recurrent left inguinal hernia repair with ProGripmesh, da Dayron assisted on 08/08/2015. History of cardiac catheterization (02/06/15) History of coronary angioplasty with insertion of stent (02/06/15) PCI/stent to LAD/septal perforating and large diagonal per Dr. August. History of craniotomy (1997) Resection of a benign left-sided meningioma. History of tonsillectomy Family History Family History Mother Cerebrovascular accident Father Family history of osteoporosis Family history of respiratory disorder Social History Social History Social History: The patient lives in his own home, his [place] approximately 3 months ago. They have 2 children, sons Robbi and Gold. 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 Lifelong nonsmoker. No alcohol or illicit substance abuse. Healthcare power of media associate: Robbi Gomez, son. Code status: Full code. Smoking status: Never smoker Alcohol intake: never Substance use: never Substance use type: does not use Lack of Transportation: No Lack of Food: Never True Current Housing: I Have Housing Concerned About Future Housing: No Difficulty Paying Gas/Electric Bills: No Difficulty Paying for Meds: No Currently Unemployed: No Education: Master's Degree or Higher Difficulty w/ Childcare or Fa
[2023-12-27 01:21] VITALS: BP 132/76; PULSE 71; RESP 17; O2SAT 98
[2023-12-27 02:56] VITALS: BP 129/70; PULSE 80; RESP 16; O2SAT 97
--- NOTE | 2023-12-27 02:58 | PC.NURSE ---
Report called on pt. Pt on commode. Pt to go up by [place] once finished on commode.
[2023-12-27 03:30] VITALS: BP 136/77; PULSE 81; RESP 14; TEMP 36.4; O2SAT 98
--- NOTE | 2023-12-27 03:40 | ADMGEN ---
This patient, Kirill Jean, was admitted to 3 [facility] Room 326-01. Patient/family oriented to hospital policies and general routines including ID bracelet, bed and alarms, visiting hours, pain management, procedures, bathroom and other care routines, personal items, smoking policy, room service/diet, and visiting hours. Information on how to activate the Rapid Response Team has been discussed. Patient/Family are encouraged to report perceived risks to care and to ask questions if they do not understand what they are told or what they should do.
[2023-12-27 06:00] VITALS: BP 128/76; PULSE 79; RESP 14; TEMP 36.4; O2SAT 97
[2023-12-27 07:01] LABS: Basophils Percent Auto 0.2 % (0.2-1.2); Hematocrit 34.7 % (42.0-52.0); Hemoglobin 11.3 g/dL (14.0-18.0); Immature Granulocyte Absolute 0.05 K/mm3 (0.00-0.031); Immature Granulocyte Percent A 0.4 % (0-0.5); Lymphocytes Percent Auto 13.2 % (18.3-44.2); Mean Corpuscular HGB Conc 32.6 g/dl (32-36); Mean Corpuscular Hemoglobin 29.5 pg (26-34); Mean Corpuscular Volume 90.6 fl (80-100); Mean Platelet Volume 9.9 fl (7.4-10.4); Monocytes Absolute Auto 0.9 K/mm3 (0.1-0.6); Monocytes Percent Auto 7.3 % (2.6-8.5); Neutrophils Absolute Auto 9.6 K/mm3 (1.3-6.7); Neutrophils Percent Auto 78.9 % (45.5-73.1); Platelet Count Result 159 k/mm3 (150-375); Red Blood Count 3.83 M/mm3 (4.6-6.20); Red Cell Distribution Width 13.1 % (11.5-14.5); White Blood Count 12.1 K/mm3 (4.5-10.0)
[2023-12-27 07:11] LABS: Anion Gap 6 mmol/L (8-16); Blood Urea Nitrogen 17 mg/dL (9-20); Calcium 8.6 mg/dL (8.4-10.2); Carbon Dioxide 18 mmol/L (22-30); Chloride 109 mmol/L (98-107); Estimated CRCL calculation 51 ml/min; Estimated Glomerular Filt Rate > 60; Glucose 125 mg/dL (65-110); Magnesium 2.4 mg/dL (1.6-2.3); Potassium 3.4 mmol/L (3.4-5.0); Sodium 133 mmol/L (137-145)
[2023-12-27 07:43] LABS: Glucose Point of Care 128 mg/dl (65-105)
[2023-12-27] MEDS: polyethylene glycoL 3350 17 GM POWD.PACK PO (08:36)
[2023-12-27] MEDS: lisinopriL 5 MG TABLET PO (08:36)
[2023-12-27] MEDS: DOCUSATE SODIUM 100 MG CAPSULE PO ×2 (08:36→21:12)
[2023-12-27] MEDS: carvediloL 3.125 MG TABLET PO ×2 (08:36→16:16)
[2023-12-27] MEDS: CHOLECALCIFEROL 1,000 UNITS TABLET 1000 UNITS PO (08:37)
[2023-12-27] MEDS: TAMSULOSIN HCL 0.4 MG CAPSULE PO (08:37)
[2023-12-27] MEDS: CLOPIDOGREL BISULFATE 75 MG TABLET PO (08:37)
--- NOTE | 2023-12-27 11:16 | PM.IMPN ---
Progress Note: A&P Assessment and Plan (1) Acute urinary retention: Code(s): R33.8 - Other retention of urine Status: Acute Assessment and Plan: CT abdomen pelvis with contrast demonstrating marked urinary bladder distention secondary to outlet obstruction from prostatomegaly. Mobley catheter placed in the ED. UA did not appear infected. Tamsulosin initiated (2) Fecal impaction: Code(s): K56.41 - Fecal impaction Status: Acute Assessment and Plan: Patient presented to the hospital after experiencing diarrhea for [address] of the abdomen and pelvis showing possible fecal impaction with mild surrounding inflammatory changes sick be seen in early stercoral colitis. Patient underwent digital rectal exam in the ED which revealed large amount of stool in the rectum that resulted in a large bowel movement afterwards. Soapsuds enema ordered. No history of colonoscopy. Daily MiraLax and Colace b.i.d. Encouraged fluid intake Clear liquid diet (3) Constipation: Code(s): K59.00 - Constipation, unspecified Status: Acute Assessment and Plan: see above (4) Leukocytosis: Code(s): D72.829 - Elevated white blood cell count, unspecified Status: Acute Assessment and Plan: Patient's white blood cell count presentation was 12.5. This could be due to patient's urinary retention. Continue to trend. (5) Essential hypertension: Code(s): I10 - Essential (primary) hypertension Status: Acute Assessment and Plan: Continue home medication. Monitor. (6) Atrial fibrillation and flutter: Code(s): I48.91 - Unspecified atrial fibrillation; I48.92 - Unspecified atrial flutter Status: Acute Assessment and Plan: Patient on Xarelto. Continue therapy. Patient rate controlled at this time (7) CHF (congestive heart failure): Code(s): I50.9 - Heart failure, unspecified Status: Acute Assessment and Plan: Not in active exacerbation. Stable (8) ASHD (arteriosclerotic heart disease): Code(s): I25.10 - Atherosclerotic heart disease of [place] coronary artery without angina pectoris Status: Acute Assessment and Plan: Patient on dual anticoagulation therapy Continue home medications. Plan This is a pleasant 87-year-old male with significant history for pre diabetes, ischemic cardiomyopathy, CAD status post [place], GERD, hypertension, gout, hyperlipidemia atrial fibrillation on Xarelto presenting with complaints of 1 day of persistent brown color diarrhea associated with abdominal pain discomfort diffuse. In the emergency department patient was found to have white count of 12.5 neutrophilia, urinary retention with Mobley catheter placed and approximately 1.5 L out post. , gallbladder hydrops, 3.4 x 3.7 cm saccular infrarenal abdominal aortic aneurysm, dilated transverse colon, possible fecal impaction with mild surrounding inflammatory changes, large volume colonic stool. ER physician attempted to perform manual fecal disimpaction without much removed however large stool burden was appreciated. Patient also received Colace enema. Patient to be admitted on 12/27/2023 for observation as he still feels weak and generally miserable in for further management of fecal impaction. --- Mineral oil enema ordered. He has also been started on scheduled docusate and daily MiraLax, we can continue that. He may need manual fecal disimpaction again, consider GI consultation as well however will hold off for now. --- Bladder outlet obstruction from prostatomegaly. Tamsulosin 0.4 mg p.o. q.a.m. started. Probably also due to his fecal impaction a voiding trial can be attempted once he is disimpacted. --- Mild leukocytosis with neutrophilia probably reactive. Check procalcitonin and trend white count. He otherwise does not have symptomatology or signs of
--- NOTE | 2023-12-27 12:44 | PC.NURSE ---
Patient given mineral enema and felt the need to have a BM. The patient was unable to have a movement. This nurse explained that there was another enema ordered but at this time the patient refused. Will attempt later.
[2023-12-27 14:00] VITALS: BP 136/65; PULSE 73; RESP 20; TEMP 36.2; O2SAT 100
[2023-12-27] MEDS: RIVAROXABAN 20 MG TABLET PO (16:16)
[2023-12-27 21:57] VITALS: BP 133/62; PULSE 61; RESP 18; TEMP 36; O2SAT 98
[2023-12-27] MEDS: ACETAMINOPHEN 325 MG TABLET 650 MG PO (22:36)
[2023-12-27] MEDS: TOPIRAMATE 100 MG TABLET PO (22:36)
[2023-12-28 06:00] VITALS: BP 130/60; PULSE 55; RESP 18; TEMP 36.1; O2SAT 99
[2023-12-28 07:11] LABS: Hematocrit 34.8 % (42.0-52.0); Hemoglobin 11.3 g/dL (14.0-18.0); Mean Corpuscular HGB Conc 32.5 g/dl (32-36); Mean Corpuscular Hemoglobin 30.1 pg (26-34); Mean Corpuscular Volume 92.8 fl (80-100); Mean Platelet Volume 9.9 fl (7.4-10.4); Platelet Count Result 148 k/mm3 (150-375); Red Blood Count 3.75 M/mm3 (4.6-6.20); Red Cell Distribution Width 13.2 % (11.5-14.5); White Blood Count 6.6 K/mm3 (4.5-10.0)
[2023-12-28 07:29] LABS: Anion Gap 7 mmol/L (8-16); Blood Urea Nitrogen 14 mg/dL (9-20); Carbon Dioxide 22 mmol/L (22-30); Chloride 108 mmol/L (98-107); Estimated CRCL calculation 51 ml/min; Estimated Glomerular Filt Rate > 60; Glucose 119 mg/dL (65-110); Potassium 3.6 mmol/L (3.4-5.0); Sodium 137 mmol/L (137-145)
[2023-12-28 08:17] VITALS: PULSE 58
[2023-12-28] MEDS: carvediloL 3.125 MG TABLET PO ×2 (08:17→17:26)
[2023-12-28] MEDS: TOPIRAMATE 100 MG TABLET PO (08:17)
[2023-12-28] MEDS: CHOLECALCIFEROL 1,000 UNITS TABLET 1000 UNITS PO (08:17)
[2023-12-28] MEDS: polyethylene glycoL 3350 17 GM POWD.PACK PO (08:17)
[2023-12-28] MEDS: lisinopriL 5 MG TABLET PO (08:17)
[2023-12-28] MEDS: CLOPIDOGREL BISULFATE 75 MG TABLET PO (08:17)
[2023-12-28] MEDS: DOCUSATE SODIUM 100 MG CAPSULE PO (08:17)
[2023-12-28] MEDS: TAMSULOSIN HCL 0.4 MG CAPSULE PO (08:17)
--- NOTE | 2023-12-28 09:23 | PC.NURSE ---
This nurse attempted to remove the hodges catheter from this patient. When discussing the need to remove the catheter and explaining the process, the patient refused. When asked why he stated I do not want to have to get up to pee . This nurse explained that we could bring a urinal to assist and avoid the walk to the bathroom, the patient continued to refuse. This nurse again explained the risk of infection and how not removing the catheter can affect the bodies ability to release urine without the catheter, he continued to refuse this nurse to remove the hodges.
--- NOTE | 2023-12-28 10:06 | PC.NURSE ---
Patient assisted to the bathroom and states having a large bowel movement. Patient is now agreeable to removing the catheter.
--- NOTE | 2023-12-28 14:02 | P.DS_ITS ---
DS: Admitting Diagnosis Discharge Date 12/28/23 Admitting Diagnosis Constipation DS: Discharge Diagnosis Discharge Diagnosis (1) Acute urinary retention: Code(s): R33.8 - Other retention of urine Status: Acute Assessment and Plan: CT abdomen pelvis with contrast demonstrating marked urinary bladder distention secondary to outlet obstruction from prostatomegaly. * Mobley catheter placed in the ED. * UA did not appear infected. * Tamsulosin initiated * 12/27 Mobley was removed. Patient able to void. (2) Fecal impaction: Code(s): K56.41 - Fecal impaction Status: Acute Assessment and Plan: Patient presented to the hospital after experiencing diarrhea for [address] of the abdomen and pelvis showing possible fecal impaction with mild surrounding inflammatory changes sick be seen in early stercoral colitis. * Patient underwent digital rectal exam in the ED which revealed large amount of stool in the rectum that resulted in a large bowel movement afterwards. * Soapsuds enema and patient had BM * No history of colonoscopy. * Daily MiraLax and Colace b.i.d. * Encouraged fluid intake * KUB nonobstructive gas pattern. No impaction noted. (3) Constipation: Code(s): K59.00 - Constipation, unspecified Status: Acute Assessment and Plan: see above (4) Leukocytosis: Code(s): D72.829 - Elevated white blood cell count, unspecified Status: Acute Assessment and Plan: * Patient's white blood cell count presentation was 12.5. * This could be due to patient's urinary retention. * Continue to trend. (5) Essential hypertension: Code(s): I10 - Essential (primary) hypertension Status: Acute Assessment and Plan: * Continue home medication. * Monitor. (6) Atrial fibrillation and flutter: Code(s): I48.91 - Unspecified atrial fibrillation; I48.92 - Unspecified atrial flutter Status: Acute Assessment and Plan: * Patient on Xarelto. * Continue therapy. * Patient rate controlled at this time (7) CHF (congestive heart failure): Code(s): I50.9 - Heart failure, unspecified Status: Acute Assessment and Plan: * Not in active exacerbation. * Stable (8) ASHD (arteriosclerotic heart disease): Code(s): I25.10 - Atherosclerotic heart disease of [place] coronary artery without angina pectoris Status: Acute Assessment and Plan: Patient on dual anticoagulation therapy Continue home medications. DS: Summary Hospital Course Hospital Course: This is an 87-year-old male with a past medical history of diabetes, ischemic cardiomyopathy, CAD status post [place], GERD, hypertension, gout, hyperlipidemia, AFib on Xarelto that presented to the ED on 12/27/2023 due to 1 day of diarrhea and associated abdominal pain. Patient had not had a bowel movement 3 days prior to diarrhea starting. He was found to have white count of 12.5 neutrophilia, urinary retention with Mobley catheter placed and approximately 1.[address] abdomen pelvis with contrast demonstrating marked urinary bladder distention secondary to outlet obstruction from prostatomegaly, gallbladder hydrops, 3.4 x 3.7 cm saccular infrarenal abdominal aortic aneurysm, dilated transverse colon, possible fecal impaction with mild surrounding inflammatory changes, large volume colonic stool. patient had a manual DIS impaction in the ED and this removed a large stool burden. Patient receiv
--- NOTE | 2023-12-28 14:02 | PM.DS ---
DS: Admitting Diagnosis Discharge Date 12/28/23 Admitting Diagnosis Constipation DS: Discharge Diagnosis Discharge Diagnosis (1) Acute urinary retention: Code(s): R33.8 - Other retention of urine Status: Acute Assessment and Plan: CT abdomen pelvis with contrast demonstrating marked urinary bladder distention secondary to outlet obstruction from prostatomegaly. Mobley catheter placed in the ED. UA did not appear infected. Tamsulosin initiated 12/27 Mobley was removed. Patient able to void. (2) Fecal impaction: Code(s): K56.41 - Fecal impaction Status: Acute Assessment and Plan: Patient presented to the hospital after experiencing diarrhea for [address] of the abdomen and pelvis showing possible fecal impaction with mild surrounding inflammatory changes sick be seen in early stercoral colitis. Patient underwent digital rectal exam in the ED which revealed large amount of stool in the rectum that resulted in a large bowel movement afterwards. Soapsuds enema and patient had BM No history of colonoscopy. Daily MiraLax and Colace b.i.d. Encouraged fluid intake KUB nonobstructive gas pattern. No impaction noted. (3) Constipation: Code(s): K59.00 - Constipation, unspecified Status: Acute Assessment and Plan: see above (4) Leukocytosis: Code(s): D72.829 - Elevated white blood cell count, unspecified Status: Acute Assessment and Plan: Patient's white blood cell count presentation was 12.5. This could be due to patient's urinary retention. Continue to trend. (5) Essential hypertension: Code(s): I10 - Essential (primary) hypertension Status: Acute Assessment and Plan: Continue home medication. Monitor. (6) Atrial fibrillation and flutter: Code(s): I48.91 - Unspecified atrial fibrillation; I48.92 - Unspecified atrial flutter Status: Acute Assessment and Plan: Patient on Xarelto. Continue therapy. Patient rate controlled at this time (7) CHF (congestive heart failure): Code(s): I50.9 - Heart failure, unspecified Status: Acute Assessment and Plan: Not in active exacerbation. Stable (8) ASHD (arteriosclerotic heart disease): Code(s): I25.10 - Atherosclerotic heart disease of [place] coronary artery without angina pectoris Status: Acute Assessment and Plan: Patient on dual anticoagulation therapy Continue home medications. DS: Summary Hospital Course Hospital Course: This is an 87-year-old male with a past medical history of diabetes, ischemic cardiomyopathy, CAD status post NE, GERD, hypertension, gout, hyperlipidemia, AFib on Xarelto that presented to the ED on 12/27/2023 due to 1 day of diarrhea and associated abdominal pain. Patient had not had a bowel movement 3 days prior to diarrhea starting. He was found to have white count of 12.5 neutrophilia, urinary retention with Mobley catheter placed and approximately 1.[address] abdomen pelvis with contrast demonstrating marked urinary bladder distention secondary to outlet obstruction from prostatomegaly, gallbladder hydrops, 3.4 x 3.7 cm saccular infrarenal abdominal aortic aneurysm, dilated transverse colon, possible fecal impaction with mild surrounding inflammatory changes, large volume colonic stool. patient had a manual DIS impaction in the ED and this removed a large stool burden. Patient received a Colace enema in the ED as well. On 12/27/2023 patient also received a soapsuds enema. Patient had a solid bowel movement on 12/28/2023. KUB showed a nonobstructive gas pattern without evidence of impaction. Patient denied having any abdominal pain, nausea or vomiting. He also was found to have urinary retention caused by prostatomegaly and a Mobley catheter was placed in the ED. Mobley catheter was removed on 12/28/2023. Patient has subsequently been put
[2023-12-28] MEDS: RIVAROXABAN 20 MG TABLET PO (17:26)
== END 2023-12-28 17:55 | disposition home or self-care (01) ==
LOC: ANHED 12-27 00:36 → ANH3MEDSUR 12-27 04:02
PROVIDERS: Internal Medicine Critical Care Medicine; Admitting Provider General Practice; Emergency Provider Emergency Medicine; PCP Internal Medicine; Visit Provider Family Medicine
DX: N40.1 Benign prostatic hyperplasia with lower urinary tract symptoms (principal); R33.8 Other retention of urine; K56.41 Fecal impaction; D72.829 Elevated white blood cell count, unspecified; I11.0 Hypertensive heart disease with heart failure; I50.9 Heart failure, unspecified; K82.1 Hydrops of gallbladder; K80.20 Calculus of gallbladder without cholecystitis without obstruction; I25.10 Atherosclerotic heart disease of native coronary artery without angina pectoris; Z95.5 Presence of coronary angioplasty implant and graft; I25.2 Old myocardial infarction; I25.5 Ischemic cardiomyopathy; E11.9 Type 2 diabetes mellitus without complications; M10.9 Gout, unspecified; I48.91 Unspecified atrial fibrillation; I48.92 Unspecified atrial flutter; G40.909 Epilepsy, unspecified, not intractable, without status epilepticus; E78.5 Hyperlipidemia, unspecified; Z86.16 Personal history of COVID-19; E55.9 Vitamin D deficiency, unspecified; Z79.01 Long term (current) use of anticoagulants; Z79.899 Other long term (current) drug therapy
CPT/HCPCS: 36415; 74018; 74177; 80048; 80053; 81001; 82948; 83605; 83735; 85025; 85027; 96361; 96374; 99285; A9270; G0378; J2405; J7030; Q9967